=== PATIENT | male | born 1945 | race African-American/Black ===

== ENCOUNTER 2020-06-05 09:37 | Emergency (ER) | payer MEDICARE ==
[~2020-06-05] VITALS: Ht 180.3 cm; Wt 81.8 kg
[2020-06-05 10:27] VITALS: BP 189/113
--- NOTE | 2020-06-05 10:40 | NUR ---
Approximate output of 800 mLs for catheter.
[2020-06-05 11:32] LABS: BILIRUBIN,URINE NEGATIVE (NEG); CLARITY,URINE CLEAR; COLOR,URINE YELLOW; NITRITE,URINE NEGATIVE (NEG); PROTEIN,URINE NEGATIVE (NEG-TRACE)
[2020-06-05 11:36] LABS: BACTERIA,URINE 0 /HPF (0-FEW); RBC,URINE >40 /HPF (0-2); WBC,URINE 0 /HPF (0-4)
--- NOTE | 2020-06-05 11:51 | ED.ADGEN ---
Past Medical History Past Medical History: Hypertension, Hypothyroid Additional Past Medical Histor: RIGHT EYE BLINDNESS,ENLARGED PROSTATE Past Surgical History: No Surgical History Smoking Status: Never Smoker Alcohol Use: None General Adult EDM: Chief Complaint: URINARY RETENTION HPI: HPI: Patient is 75-year-old male who presents to the emergency room stating that he has been unable to urinate since yesterday afternoon. He states he has been having issues for the last 3 or 4 days. He denies any dysuria or smell to his urine. He denies decreased intake. He does have a history of large prostate. He denies any other complaints. He does have some lower abdominal pain. Review of Systems: Review of Systems: General: Denies fever, chills, sweats, fatigue Eyes: Denies drainage, blurred vision, eye redness HENT: Denies rhinorrhea, sore throat, earache Respiratory: Denies cough, shortness of breath, wheezing Cardiac: Denies edema, palpitations, chest pain GI: Denies abdominal pain, Nausea, vomiting : urinary retention, pelvic pain MSK: Denies back pain, neck pain Skin: Denies rash, jaundice Neuro: Denies headache, dizziness Psychiatric: Denies SI/HI Allergies: Allergies: Allergies Coded Allergies Type Severity Reaction Last Updated Verified No Known Drug Allergies 06/05/20 No Physical Exam: PE: General: Awake, alert, NAD. Well Nourished, well hydrated. Cooperative HEENT: Atraumatic, EOMI, PERRL, airway patent, moist oral mucosa Neck: Supple, trachea midline Respiratory: CTA bilaterally, normal effort, no wheezing/crackles CV: RRR, no murmur, cap refill <2 GI: Soft, nondistended, nontender, no masses MSK: No obvious deformities Skin: Warm, dry, intact Neuro: A&O x3, speech NL, sensory and motor grossly intact, no focal deficits Psych: Normal affect, normal mood, not suicidal or homicidal Current Patient Data: Labs: Laboratory Tests Test 06/05/20 10:40 Urine Collection Type U cath Urine Color Yellow Urine Clarity Clear Urine pH 7.0 (<5.0-8.0) Urine Specific [place] <=1.005 (1.000-1.030) Urine Protein Negative mg/dL (NEG-TRACE) Urine Glucose (UA) Negative mg/dL (NEG) Urine Ketones (Stick) Negative mg/dL (NEG) Urine Blood Large (NEG) Urine Nitrite Negative (NEG) Urine Bilirubin Negative (NEG) Urine Urobilinogen Dipstick 1.0 mg/dL (0.2 mg/dL) Urine Leukocyte Esterase Negative (NEG) Urine RBC >40 /HPF (0-2) Urine WBC 0 /HPF (0-4) Urine Squamous Epithelial Cells Occ /LPF Urine Bacteria 0 /HPF (0-FEW) Vital Signs: Vital Signs Date Time Temp Pulse Resp B/P (MAP) Pulse Ox O2 Delivery O2 Flow Rate FiO2 06/05/20 10:27 97.6 99 20 189/113 (138) 94 Room Air 97.6 EKG: EKG: [] Heart Score: Risk Factors: Risk Factors: DM, Current or recent (<one month) smoker, HTN, HLP, family history of CAD, obesity. Risk Scores: Score 0 - 3: 2.5% MACE over next 6 weeks - Discharge Home Score 4 - 6: 20.3% MACE over next 6 weeks - Admit for Clinical Observation Score 7 - 10: 72.7% MACE over next 6 weeks - Early Invasive Strategies Radiology/Procedures: Radiology/Procedures: [] Course & Med Decision Making: Course & Med Decision Making Pertinent Labs and Imaging studies reviewed. (See chart for details) Patient is 75-year-old male who presents to the emergency room with urinary retention. Bladder scan shows greater than 700. Combs was placed with out difficulty. He did have some mild bleeding with placement. UA is negative for infection. He received training on how to use a leg bag. [facility] I have discussed with him that he needs to call his primary care doctor today to get a referral to urology at the [facility]. Patient's test results and vitals while in the ED were fully reviewed and discussed with the patient. Patient is stable and at this time does not need admission to the hospital. We have discussed strict return precautions and the importance of following up with their Primary Care Physician. Patient stated understanding and was given an opportunity to ask any questions. Patient is in agreement with plan. Dragon Disclaimer: Dragon Disclaimer: This electronic medical record was generated, in whole or in part, using a voice recognition dictation system. Departure Departure Impression: Primary Impression: Urinary retention Disposition: 01 DC HOME SELF CARE/HOMELESS Condition: STABLE Referrals: RACHEL STEVEN (PCP) Patient Instructions: Indwelling Urinary Catheter Care-Brief, Urinary Retention, Acute, Male Additional Instructions: Please call your [facility] today to get a referral to the Urologist. KATYA GRAY MD Jun 05, 2020 11:51
== END 2020-06-05 12:06 | disposition home or self-care (01) ==
LOC: ER 09:37
DX: R33.9 Retention of urine, unspecified (principal); R10.2 Pelvic and perineal pain; I10 Essential (primary) hypertension; E03.9 Hypothyroidism, unspecified; Z98.890 Other specified postprocedural states
CPT/HCPCS: 51702; 81001; 99284

== ENCOUNTER 2020-06-06 17:21 | Emergency (ER) | payer MEDICARE ==
[2020-06-05 10:27] VITALS: BP 189/113
[~2020-06-06] VITALS: Ht 177.8 cm; Wt 81.8 kg
--- NOTE | 2020-06-06 17:36 | PHYS DOC ---
Past Medical History Past Medical History: Hypertension, Hypothyroid Additional Past Medical Histor: RIGHT EYE BLINDNESS,ENLARGED PROSTATE Past Surgical History: No Surgical History Smoking Status: Never Smoker Alcohol Use: None General Adult EDM: Chief Complaint: URINE CATHETER PROBLEM HPI: HPI: History obtained from patient. Patient is a 75-year-old male with a history of enlarged prostate who presents with Combs catheter issue. Patient states he was seen here yesterday for urinary retention. Combs catheter was placed that difficulty did have immediate urinary output. He states he was discharged home for close follow-up. He states approximate hour ago while sitting down at the k itchen table he felt a sudden marino of urine down his leg. He states that the Combs catheter bag somehow burst. Denies any trauma or injury to the area. Denies any dysuria. Denies any syncope. States he does [facility] Combs [facility]. Denies any other issues other than getting the bag replaced. No other complaints. Review of Systems: Review of Systems: Constitutional: Denies fever or chills. [] Eyes: Denies change in visual acuity. [] HENT: Denies nasal congestion or sore throat. [] Respiratory: Denies cough or shortness of breath. [] Cardiovascular: Denies chest pain or edema. [] GI: Denies abdominal pain, nausea, vomiting, bloody stools or diarrhea. [] : Denies dysuria. [] Musculoskeletal: Denies back pain or joint pain. [] Integument: Denies rash. [] Neurologic: Denies headache, focal weakness or sensory changes. [] Endocrine: Denies polyuria or polydipsia. [] Lymphatic: Denies swollen glands. [] Psychiatric: Denies depression or anxiety. [] Heart Score: Risk Factors: Risk Factors: DM, Current or recent (<one month) smoker, HTN, HLP, family history of CAD, obesity. Risk Scores: Score 0 - 3: 2.5% MACE over next 6 weeks - Discharge Home Score 4 - 6: 20.3% MACE over next 6 weeks - Admit for Clinical Observation Score 7 - 10: 72.7% MACE over next 6 weeks - Early Invasive Strategies Allergies: Allergies: Allergies Coded Allergies Type Severity Reaction Last Updated Verified No Known Drug Allergies 06/05/20 No Physical Exam: PE: Constitutional: Well developed, well nourished, no acute distress, non-toxic appearance. [] HENT: Normocephalic, atraumatic, bilateral external ears normal, oropharynx moist, no oral exudates, nose normal. [] Eyes: PERRLA, EOMI, conjunctiva normal, no discharge. [] Neck: Normal range of motion, no tenderness, supple, no stridor. [] Cardiovascular:Heart rate regular rhythm, no murmur [] Lungs & Thorax: Bilateral breath sounds clear to auscultation [] Abdomen: soft, no tenderness, no masses, no pulsatile masses. [] : Circumcised. No testicular pain or tenderness. No blood at the external urethral meatus. Combs catheter appears in place. Skin: Warm, dry, no erythema, no rash. [] Back: No tenderness, no CVA tenderness. [] Extremities: No tenderness, no cyanosis, no clubbing, ROM intact, no edema. [] Neurologic: Alert and oriented X 3, normal motor function, normal sensory function, no focal deficits noted. [] Psychologic: Affect normal, judgement normal, mood normal. [] EKG: EKG: [] Radiology/Procedures: Radiology/Procedures: [] Course & Med Decision Making: Course & Med Decision Making Pertinent Labs and Imaging studies reviewed. (See chart for details) [] Patient is a very pleasant 75-year-old male who presents with chief complaint of Combs catheter issue. Vital signs unremarkable. Exam noted above. Combs catheter was flushed did have spontaneous return of fluid. Combs catheter bag was reapplied to the catheter. Given the patient is asymptomatic no further testing or imaging will be performed. He was instructed [facility] his Combs catheter. Return precautions discussed and understood. Stable for discharge home. Dragon Disclaimer: [employer] Disclaimer: This electronic medical record was generated, in whole or in part, using a voice recognition dictation system. Departure Departure Impression: Primary Impression: Combs catheter problem Qualified Codes: T83.9XXA - Unspecified complication of genitourinary prosthetic device, implant and graft, initial encounter Disposition: 01 DC HOME SELF CARE/HOMELESS Condition: STABLE Referrals: RACHEL STEVEN (PCP) Patient Instructions: Combs Catheter Care, Adult Additional Instructions: [facility] Combs [facility] MYKE BERNARD DO Jun 06, 2020 17:36
== END 2020-06-06 17:53 | disposition home or self-care (01) ==
LOC: ER 17:21
DX: T83.028A Displacement of other urinary catheter, initial encounter (principal); I10 Essential (primary) hypertension; E03.9 Hypothyroidism, unspecified; N40.1 Benign prostatic hyperplasia with lower urinary tract symptoms; R33.8 Other retention of urine; Y82.8 Other medical devices associated with adverse incidents; Y92.89 Other specified places as the place of occurrence of the external cause
CPT/HCPCS: 99281

== ENCOUNTER 2021-02-17 07:20 | Emergency (ER) | payer MEDICARE ==
[~2021-02-17] VITALS: Ht 180.3 cm; Wt 81.8 kg
--- NOTE | 2021-02-17 08:27 | ED.ADGEN ---
Past Medical History Past Medical History: Hypertension, Hypothyroid Additional Past Medical Histor: RIGHT EYE BLINDNESS,ENLARGED PROSTATE Past Surgical History: No Surgical History Smoking Status: Never Smoker Alcohol Use: None General Adult EDM: Chief Complaint: URINARY RETENTION HPI: HPI: Patient is a 75 year old male presenting with urinary tension and low abdominal pain. Patient states he had urinated yesterday before going to bed but this morning is unable to urinate is complaining of suprapubic pressure. Patient has had a history of-to have a Combs placed in the past urinary retention has a history of BPH. He is taking a medication for his enlarged prostate but is not member the name. Denies any new medications. No other complaints. Review of Systems: Review of Systems: All other systems within normal limits except for as noted in the HPI Allergies: Allergies: Allergies Coded Allergies Type Severity Reaction Last Updated Verified No Known Drug Allergies 06/05/20 No Physical Exam: PE: Constitutional: Well developed, well nourished, no acute distress, non-toxic appearance. [] HENT: Normocephalic, atraumatic, bilateral external ears normal, nose normal. [] Eyes: PERRLA, conjunctiva normal, no discharge. [] Neck: No rigidity, supple, no stridor. [] Cardiovascular: Regular rate and rhythm, brisk cap refill [] Lungs & Thorax: Non labored symmetric respirations, no tachypnea or respiratory distress [] Abdomen: Soft, nondistended, low abdominal tenderness, palpable bladder. Skin: Warm, dry, no erythema, no rash. [] Back: Unremarkable Extremities: No deformities, range of motion grossly intact, no lower extremity edema [] Neurologic: Alert and oriented X 3, no focal deficits noted. [] Psychologic: Affect normal, judgement normal, mood normal. [] Current Patient Data: Labs: Laboratory Tests Test 02/17/21 08:58 Urine Collection Type Unknown Urine Color Yellow Urine Clarity Clear Urine pH 6.5 (<5.0-8.0) Urine Specific [place] <=1.005 (1.000-1.030) Urine Protein Negative mg/dL (NEG-TRACE) Urine Glucose (UA) Negative mg/dL (NEG) Urine Ketones (Stick) Negative mg/dL (NEG) Urine Blood Trace (NEG) Urine Nitrite Negative (NEG) Urine Bilirubin Negative (NEG) Urine Urobilinogen Dipstick 1.0 mg/dL (0.2 mg/dL) Urine Leukocyte Esterase Negative (NEG) Urine RBC 3-5 /HPF (0-2) Urine WBC Occ /HPF (0-4) Urine Squamous Epithelial Cells Occ /LPF Urine Bacteria 0 /HPF (0-FEW) Vital Signs: Vital Signs Date Time Temp Pulse Resp B/P (MAP) Pulse Ox O2 Delivery O2 Flow Rate FiO2 02/17/21 10:27 63 16 142/78 (99) 100 Room Air 02/17/21 07:40 98.6 98.6 EKG: EKG: [] Heart Score: C/O Chest Pain: No Risk Factors: Risk Factors: DM, Current or recent (<one month) smoker, HTN, HLP, family history of CAD, obesity. Risk Scores: Score 0 - 3: 2.5% MACE over next 6 weeks - Discharge Home Score 4 - 6: 20.3% MACE over next 6 weeks - Admit for Clinical Observation Score 7 - 10: 72.7% MACE over next 6 weeks - Early Invasive Strategies Radiology/Procedures: Radiology/Procedures: Bladder scan showing greater than 1 L. Combs placed with relief of abdominal pain and over 1 L urine output. [] Course & Med Decision Making: Course & Med Decision Making Pertinent Labs and Imaging studies reviewed. (See chart for details) [] Dragon Disclaimer: Dragon Disclaimer: This electronic medical record was generated, in whole or in part, using a voice recognition dictation system. Departure Departure Impression: Primary Impression: Urinary retention Disposition: HOME / SELF CARE / HOMELESS Condition: STABLE Referrals: SILVIANO STEVEN MD (PCP) Patient Instructions: Combs Catheter Care, Adult, Urinary Retention, Acute, Male Additional Instructions: Follow-up with your primary care provider or [facility] for voiding trial in 3 to 4 days for [place]ing [place] [address] [place] [address] RENE COON MD Feb 17, 2021 08:27
[2021-02-17 09:20] LABS: BILIRUBIN,URINE NEGATIVE (NEG); CLARITY,URINE CLEAR; COLOR,URINE YELLOW; NITRITE,URINE NEGATIVE (NEG); PH,URINE 6.5 (<5.0-8.0); PROTEIN,URINE NEGATIVE (NEG-TRACE)
[2021-02-17 09:37] LABS: BACTERIA,URINE 0 /HPF (0-FEW); WBC,URINE OCC /HPF (0-4)
[2021-02-17 10:27] VITALS: BP 142/78
== END 2021-02-17 11:12 | disposition home or self-care (01) ==
LOC: ER 07:20
DX: N40.1 Benign prostatic hyperplasia with lower urinary tract symptoms (principal); R33.8 Other retention of urine; E03.9 Hypothyroidism, unspecified; I10 Essential (primary) hypertension
CPT/HCPCS: 51702; 81001; 99284; A4314

== ENCOUNTER 2021-07-28 11:25 | Emergency (ER) | payer MEDICARE ==
[~2021-07-28] VITALS: Ht 180.3 cm; Wt 77.3 kg
--- NOTE | 2021-07-28 12:34 | PHYS DOC ---
Past Medical History Past Medical History: Hypertension, Hypothyroid Additional Past Medical Histor: RIGHT EYE BLINDNESS,ENLARGED PROSTATE Past Surgical History: No Surgical History Smoking Status: Never Smoker Alcohol Use: None General Adult EDM: Chief Complaint: URINE CATHETER PROBLEM HPI: HPI: 76-year-old male drove self to the ED with chief complaint of urinary catheter problem. Patient states that he noticed his catheter has been kinking, and he observed dark urine that uncharacteristic of his typical urine output. Patient states the last time he recalls his catheter was replaced was approximately 2 months ago. Patient denies any other medical concerns at this time. Denies headache, fever, chills, nausea, vomiting. Patient is resting comfortably in ED bed, in no acute distress. Review of Systems: Review of Systems: Constitutional: Denies fever or chills Eyes: Denies redness or eye pain HENT: Denies nasal congestion or sore throat Respiratory: Denies cough or shortness of breath Cardiovascular: Denies chest pain or palpitations GI: Denies abdominal pain, nausea, or vomiting : Denies dysuria. Reports hematuria Musculoskeletal: Denies back pain or joint pain Integument: Denies rash or skin lesions Neurologic: Denies headache, focal weakness or sensory changes Complete systems were reviewed and found to be within normal limits, except as documented in this note. Heart Score: C/O Chest Pain: No Allergies: Allergies: Allergies Coded Allergies Type Severity Reaction Last Updated Verified No Known Drug Allergies 06/05/20 No Physical Exam: PE: Constitutional: Well developed, well nourished, no acute distress, non-toxic appearance HENT: Normocephalic, atraumatic Eyes: PERRL, EOMI, conjunctiva normal, no discharge Neck: Normal range of motion, no tenderness, supple Lungs & Thorax: No respiratory distress, equal chest rise and fall Abdomen: Soft, no tenderness Skin: Warm, dry, no erythema, no rash Back: No tenderness, no CVA tenderness Extremities: No tenderness, ROM intact, no edema Neurologic: Alert and oriented X 3, normal motor function, normal sensory function, no focal deficits noted Psychologic: Affect normal, judgment normal Current Patient Data: Vital Signs: Vital Signs Date Time Temp Pulse Resp B/P (MAP) Pulse Ox O2 Delivery O2 Flow Rate FiO2 07/28/21 11:58 97.8 74 18 154/86 (108) 96 Room Air 97.8 EKG: EKG: [] Radiology/Procedures: Radiology/Procedures: [] Course & Med Decision Making: Course & Med Decision Making 76-year-old male drove self to the ED with chief complaint of urinary catheter problem. Combs catheter replaced in ED. Dragon Disclaimer: Dragon Disclaimer: This electronic medical record was generated, in whole or in part, using a voice recognition dictation system. Departure Departure Impression: Primary Impression: Complicated UTI (urinary tract infection) Disposition: HOME / SELF CARE / HOMELESS Condition: STABLE Referrals: SILVIANO STEVEN MD (PCP) Patient Instructions: Catheter-Associated Urinary Tract Infection FAQs - [place], Combs Catheter Care, Adult Scripts Cephalexin (CEPHALEXIN) 500 Mg Tablet 1 TAB PO TID for UTI for 10 Days, #30 TAB Prov: ISAK DANIEL DO 07/28/21 ISAK DANIEL DO Jul 28, 2021 12:34
[2021-07-28 13:00] VITALS: BP 136/78
[2021-07-28 13:47] LABS: CLARITY,URINE TURBID
[2021-07-28 13:50] LABS: COLOR,URINE BROWN
[2021-07-28 13:59] LABS: BACTERIA,URINE MODERATE /HPF (0-FEW); RBC,URINE TNTC /HPF (0-2)
[2021-07-28] MEDS ORDERED: CEPHALEXIN 250 MG CAPSULE. PO ONE (14:15)
[2021-07-28] MEDS ORDERED: CEPH500T PO (14:54)
== END 2021-07-28 15:00 | disposition home or self-care (01) ==
LOC: ER 11:25
DX: T83.098A Other mechanical complication of other urinary catheter, initial encounter (principal); N39.0 Urinary tract infection, site not specified; I10 Essential (primary) hypertension; E03.9 Hypothyroidism, unspecified
CPT/HCPCS: 51702; 81001; 87086; 99283

== ENCOUNTER 2021-08-19 13:54 | Emergency (ER) | payer MEDICARE ==
[~2021-08-19 13:54] MED LIST: CEPH500T PO
[2021-08-20] MEDS ORDERED: CIPR500T94 PO (00:34)
== END 2021-08-19 15:58 | disposition left against medical advice (07) ==
LOC: ER 13:54
DX: T83.038A Leakage of other urinary catheter, initial encounter (principal); Y92.89 Other specified places as the place of occurrence of the external cause; Z53.21 Procedure and treatment not carried out due to patient leaving prior to being seen by health care provider

== ENCOUNTER 2021-08-19 22:03 | Emergency (ER) | payer MEDICARE ==
[~2021-08-19] VITALS: Ht 180.3 cm; Wt 75.9 kg
--- NOTE | 2021-08-19 23:29 | PHYS DOC ---
Past Medical History Past Medical History: Hypertension, Hypothyroid, UTI Additional Past Medical Histor: PROSTATE ENLARGEMENT (MACHO SANDERS APRN) Past Surgical History: Other Additional Past Surgical Histo: LEFT KNEE (MACHO SANDERS APRN) Smoking Status: Current Every Day Smoker Alcohol Use: None (MACHO SANDERS APRN) General Adult EDM: Chief Complaint: URINE CATHETER PROBLEM HPI: HPI: Patient is a 76-year-old male who presents today with leakage from his urinary catheter. Patient is a fairly poor historian so past medical records and past ER records were reviewed for most of the past medical history. Patient states over the last couple days he has noted drainage from his catheter coming from the connection between the bag and the catheter itself. He was unable to tell the staff when the catheter was replaced but according to past medical records catheter was changed on July 28, 2021 by the ER here. Patient states he was seen within the last month with the urologist at the [facility] in [place]. He states that he has something wrong with his prostate and they are needing to do surgery on that but he is unsure of when that will happen. Patient denies chest pain, shortness of air, or fever or abdominal pain at this time. It was noted that the connection between the catheter and the bag was loosened and urine was coming from the catheter and not going into the bag, bag is pulling quite a bit on the catheter itself. (MACHO SANDERS APRN) Review of Systems: Review of Systems: Constitutional: Denies fever or chills. [] Eyes: Denies change in visual acuity. [] HENT: Denies nasal congestion or sore throat. [] Respiratory: Denies cough or shortness of breath. [] Cardiovascular: Denies chest pain or edema. [] GI: Denies abdominal pain, nausea, vomiting, bloody stools or diarrhea. [] : Denies dysuria, urine draining from catheter and not into the bag Musculoskeletal: Denies back pain or joint pain. [] Integument: Denies rash. [] Neurologic: Denies headache, focal weakness or sensory changes. [] Endocrine: Denies polyuria or polydipsia. [] Lymphatic: Denies swollen glands. [] Psychiatric: Denies depression or anxiety. [] (MACHO SANDERS APRN) Heart Score: C/O Chest Pain: N/A Risk Factors: Risk Factors: DM, Current or recent (<one month) smoker, HTN, HLP, family history of CAD, obesity. Risk Scores: Score 0 - 3: 2.5% MACE over next 6 weeks - Discharge Home Score 4 - 6: 20.3% MACE over next 6 weeks - Admit for Clinical Observation Score 7 - 10: 72.7% MACE over next 6 weeks - Early Invasive Strategies (MACHO SANDERS APRN) Allergies: Allergies: Allergies Coded Allergies Type Severity Reaction Last Updated Verified No Known Drug Allergies 06/05/20 No (MACHO SANDERS APRN) Physical Exam: PE: Constitutional: Well developed, well nourished, no acute distress, non-toxic appearance. [] HENT: Normocephalic, atraumatic, bilateral external ears normal, oropharynx moist, no oral exudates, nose normal. [] Eyes: PERRLA, EOMI, conjunctiva normal, no discharge. [] Neck: Normal range of motion, no tenderness, supple, no stridor. [] Cardiovascular:Heart rate regular rhythm, no murmur [] Lungs & Thorax: Bilateral breath sounds clear to auscultation [] Abdomen: Bowel sounds normal, soft, no tenderness, no masses, no pulsatile masses. : #18 [place] Allen catheter is in place with a leg bag attached urine is dark in color orange in nature, does have an odor to it.] Skin: Warm, dry, no erythema, no rash. [] Back: No tenderness, no CVA tenderness. [] Extremities: No tenderness, no cyanosis, no clubbing, ROM intact, no edema. [] Neurologic: Alert and oriented X 3, normal motor function, normal sensory function, no focal deficits noted. [] Psychologic: Affect normal, judgement normal, mood normal. [] (MACHO SANDERS APRN) PE: Constitutional: Well developed, well nourished, no acute distress, non-toxic appearance HENT: Normocephalic, atraumatic Eyes: Conjunctiva normal, no discharge Neck: Normal range of motion, supple Lungs & Thorax: Equal chest rise and fall, no respiratory distress\ : Normal male genitalia, no testicular pain or swelling Skin: Warm, dry, no erythema, no rash Neurologic: Alert and oriented X 3, no focal deficits noted Psychologic: Affect normal, judgement normal (ISAK DANIEL DO) Current Patient Data: Labs: Laboratory Tests Test 08/19/21 23:50 Urine Collection Type U cath Urine Color Yellow Urine Clarity Clear Urine pH 6.5 Urine Specific [place] 1.015 Urine Protein 30 mg/dL Urine Glucose (UA) Negative mg/dL Urine Ketones (Stick) Negative mg/dL Urine Blood Moderate Urine Nitrite Positive Urine Bilirubin Negative Urine Urobilinogen Dipstick 1.0 mg/dL Urine Leukocyte Esterase Moderate Urine RBC Occ /HPF Urine WBC 20-40 /HPF Urine Squamous Epithelial Cells Occ /LPF Urine Bacteria Many /HPF Urine Hyaline Casts Occasional /HPF Urine Mucus Mod /LPF Vital Signs: Vital Signs Date Time Temp Pulse Resp B/P (MAP) Pulse Ox O2 Delivery O2 Flow Rate FiO2 08/19/21 23:00 98.7 61 16 187/93 (124) 97 Room Air 98.7 (MACHO SANDERS APRN) EKG: EKG: [] (MACHO SANDERS APRN) Radiology/Procedures: Radiology/Procedures: [] (MACHO SANDERS APRN) Course & Med Decision Making: Course & Med Decision Making Pertinent Labs and Imaging studies reviewed. (See chart for details) We will have RN replace Allen catheter and grab a UA and will send it to lab for analysis 0026 reviewed patient's past urine culture patient has multiple resistance to medications due to patient's current urine will place patient on Cipro 500 mg 1 tablet twice daily for 7 days. We will have him follow-up this week with his urology clinic and his primary care physician for further management of his urinary tract infection. Have informed patient and instructed him that anytime there is a break in the system between the catheter and the bag that introduces bacteria into the system and he is to avoid that at all costs. Patient verbalized understanding of this and is agreeable to the plan of care. (MACHO SANDERS APRN) Dragon Disclaimer: Dragon Disclaimer: This electronic medical record was generated, in whole or in part, using a voice recognition dictation system. (MACHO SANDERS APRN) Additional Procedures Progress Allen catheter replacement: (by physician) RN called with difficulty in replacement of indwelling allen cath. Old catheter had previously been removed. Verbal consent obtained. Time out performed. Hand hygiene utilized. Sterile gloves donned. Allen catheter successfully placed by myself after lubrication with ky jelly. Positive return of urine noted in down drain prior to balloon infiltration. Patient tolerated procedure well and without difficulty. (ISAK DANIEL DO) Departure Departure Impression: Primary Impression: UTI (urinary tract infection) due to urinary indwelling Allen catheter Qualified Codes: T83.511A - Infection and inflammatory reaction due to indwelling urethral catheter, initial encounter; N39.0 - Urinary tract infection, site not specified Disposition: HOME / SELF CARE / HOMELESS Condition: STABLE Referrals: SILVIANO STEVEN MD (PCP) Patient Instructions: Allen Catheter Care, Adult, Indwelling Urinary Catheter Care-Brief, Urinary Tract Infection Additional Instructions: Cipro 500 mg take 1 tablet twice daily for 7 full days. Follow-up with your primary care physician or your urologist at the [facility] for further management of urinary tract infection and your Allen care Avoid any break in the catheter to bag connection. Return to the emergency department for abdominal pain, fever, or any problems with your Allen catheter Scripts Ciprofloxacin Hcl (CIPRO) 500 Mg Tablet 1 TAB PO BID for 7 Days, #14 TAB 0 Refills Prov: MACHO SANDERS APRN 08/20/21 Attending Signature Attending Signature I have personally interviewed and examined the patient. All charts, labs, and imaging studies were reviewed. I agree with the PA/BONE CHAR KILN TENDER's findings, exam, and plan. (ISAK DANIEL DO) MACHO SANDERS CHILDREN'S COUNSELOR Aug 19, 2021 23:29 ISAK DANIEL DO Aug 24, 2021 10:36
[2021-08-20 00:04] LABS: BILIRUBIN,URINE NEGATIVE (NEG); CLARITY,URINE CLEAR; COLOR,URINE YELLOW; NITRITE,URINE POSITIVE (NEG); PH,URINE 6.5 (<5.0-8.0); PROTEIN,URINE 30 mg/dL (NEG-TRACE)
[2021-08-20 00:09] LABS: BACTERIA,URINE MANY /HPF (0-FEW); RBC,URINE OCC /HPF (0-2); WBC,URINE 20-40 /HPF (0-4)
[2021-08-20 00:10] LABS: HYALINE CASTS, URINE OCCASIONAL /HPF
[2021-08-20 00:30] VITALS: BP 162/80
[2021-08-20] MEDS ORDERED: CIPR500T94 PO (00:34)
[2021-08-20] MEDS ORDERED: CIPROFLOXACIN HCL 250 MG TABLET. PO ONE (01:00)
== END 2021-08-20 01:09 | disposition home or self-care (01) ==
LOC: ER 22:03
DX: T83.511A Infection and inflammatory reaction due to indwelling urethral catheter, initial encounter (principal); N39.0 Urinary tract infection, site not specified; I10 Essential (primary) hypertension; E03.9 Hypothyroidism, unspecified; F17.200 Nicotine dependence, unspecified, uncomplicated; Y92.89 Other specified places as the place of occurrence of the external cause
CPT/HCPCS: 81001; 87077; 87086; 87186; 99283

== ENCOUNTER 2021-08-20 08:16 | Emergency (ER) | payer MEDICARE ==
[~2021-08-20] VITALS: Ht 172.7 cm; Wt 81.0 kg
[~2021-08-20 08:16] MED LIST changes: +CIPR500T94 PO
--- NOTE | 2021-08-20 09:02 | PHYS DOC ---
Past Medical History Past Medical History: Hypertension, Hypothyroid, UTI Additional Past Medical Histor: PROSTATE ENLARGEMENT Past Surgical History: Other Additional Past Surgical Histo: LEFT KNEE Smoking Status: Current Every Day Smoker Alcohol Use: None General Adult EDM: Chief Complaint: GROIN PAIN HPI: HPI: Patient is a 76 year old male who was brought here by EMS from home due to lower abdominal pain, bladder pressure. Patient was seen here yesterday due to bladder pain. Patient had an indwelling Combs catheter. It was replaced in the ER. Patient was diagnosed with urinary tract infection, prescribed antibiotic but he did not pick it up yet patient went home, felt more pain in the bladder area. Patient noted urine in the tubing but not in the collecting bag. Patient denies any fever, no nausea vomiting. Review of Systems: Review of Systems: Constitutional: Denies fever or chills. [] Eyes: Denies change in visual acuity. [] HENT: Denies nasal congestion or sore throat. [] Respiratory: Denies cough or shortness of breath. [] Cardiovascular: Denies chest pain or edema. [] GI: Denies abdominal pain, nausea, vomiting, bloody stools or diarrhea. [] : Denies dysuria. [] Musculoskeletal: Denies back pain or joint pain. [] Integument: Denies rash. [] Neurologic: Denies headache, focal weakness or sensory changes. [] Endocrine: Denies polyuria or polydipsia. [] Lymphatic: Denies swollen glands. [] Psychiatric: Denies depression or anxiety. [] Heart Score: C/O Chest Pain: N/A Risk Factors: Risk Factors: DM, Current or recent (<one month) smoker, HTN, HLP, family history of CAD, obesity. Risk Scores: Score 0 - 3: 2.5% MACE over next 6 weeks - Discharge Home Score 4 - 6: 20.3% MACE over next 6 weeks - Admit for Clinical Observation Score 7 - 10: 72.7% MACE over next 6 weeks - Early Invasive Strategies Allergies: Allergies: Allergies Coded Allergies Type Severity Reaction Last Updated Verified No Known Drug Allergies 06/05/20 No Physical Exam: PE: Constitutional: Well developed, well nourished, patient was in acute distress due to pain HENT: Normocephalic, atraumatic, bilateral external ears normal, oropharynx moist, no oral exudates, nose normal. [] Eyes: PERRLA, EOMI, conjunctiva normal, no discharge. [] Neck: Normal range of motion, no tenderness, supple, no stridor. [] Cardiovascular:Heart rate regular rhythm, no murmur [] Lungs & Thorax: Bilateral breath sounds clear to auscultation [] Abdomen: Bowel sounds normal, soft, Combs catheter in place, suprapubic tenderness to palpation, bladder distended. Combs catheter in place, there is urine in the tubing but not in the collecting bag. Skin: Warm, dry, no erythema, no rash. [] Back: No tenderness, no CVA tenderness. [] Extremities: No tenderness, no cyanosis, no clubbing, ROM intact, no edema. [] Neurologic: Alert and oriented X 3, normal motor function, normal sensory function, no focal deficits noted. [] Psychologic: Affect normal, judgement normal, mood normal. [] EKG: EKG: [] Radiology/Procedures: Radiology/Procedures: [] Course & Med Decision Making: Course & Med Decision Making Pertinent Labs and Imaging studies reviewed. (See chart for details) Bladder scan show more than 900 cc of urine in the bladder. Combs catheter was replaced, the meatus 400 cc of urine collected. Patient fell better immediately. About 1 L of urine were collected. Dragon Disclaimer: Dragon Disclaimer: This electronic medical record was generated, in whole or in part, using a voice recognition dictation system. Departure Departure Impression: Primary Impression: Combs catheter problem Disposition: HOME / SELF CARE / HOMELESS Condition: IMPROVED Referrals: SILVIANO STEVEN MD (PCP) Please follow up with your urologist this week Patient Instructions: Combs Catheter Care, Adult Additional Instructions: Thank you for visiting our Emergency Department. We appreciate you trusting us with your care. If any additional problems come up don't hesitate to return to visit us. Please follow up with your primary care provider so they can plan additional care if needed and know about the problem that you had. If symptoms worsen come back to the Emergency Department. Any concerning symptoms that start such as chest pain, shortness of air, weakness or numbness on one side of the body, running high fevers or any other concerning symptoms return to the ER. NUSRAT MORIN DO Aug 20, 2021 09:02
[2021-08-20 09:03] VITALS: BP 154/102
== END 2021-08-20 09:52 | disposition home or self-care (01) ==
LOC: ER 08:16
DX: T83.84XA Pain due to genitourinary prosthetic devices, implants and grafts, initial encounter (principal); I10 Essential (primary) hypertension; E03.9 Hypothyroidism, unspecified; F17.200 Nicotine dependence, unspecified, uncomplicated; Y92.89 Other specified places as the place of occurrence of the external cause
CPT/HCPCS: 51702; 99284

== ENCOUNTER 2021-09-23 04:38 | Emergency (ER) | payer MEDICARE ==
[~2021-09-23] VITALS: Ht 180.3 cm; Wt 77.3 kg
[2021-09-23] MEDS ORDERED: IV NORMAL SALINE 1000ML BAG 1,000 ML IV ONE (06:30)
[2021-09-23] MEDS ORDERED: cefTRIAXone IV Push 1 GM VIAL. IVP ONE (06:30)
[2021-09-23 06:46] LABS: BILIRUBIN,URINE NEGATIVE (NEG); CLARITY,URINE CLEAR; COLOR,URINE YELLOW; NITRITE,URINE NEGATIVE (NEG); PH,URINE 6.5 (<5.0-8.0); PROTEIN,URINE NEGATIVE (NEG-TRACE)
[2021-09-23 06:47] VITALS: BP 132/77
[2021-09-23 06:47] LABS: CALCIUM 8.9 mg/dL (8.5-10.1); CREATININE 1.2 mg/dL (0.7-1.3); GFR 71.2; POTASSIUM 3.4 mmol/L (3.5-5.1)
--- NOTE | 2021-09-23 06:49 | PHYS DOC ---
Past Medical History Past Medical History: Hypertension, Hypothyroid, UTI Additional Past Medical Histor: PROSTATE ENLARGEMENT Past Surgical History: Other Additional Past Surgical Histo: LEFT KNEE Smoking Status: Current Every Day Smoker Alcohol Use: None General Adult EDM: Chief Complaint: URINE CATHETER PROBLEM HPI: HPI: Patient is a 76 year old male with history of BPH, urinary retention with urinary catheter in place who presents with catheter dysfunction. States that he drained his bag before bed last night, and woke up with suprap ubic pain. The bag had had no drainage this morning. He tried repositioning it and that did not work. Denies fever or chills. States that this Allen was placed approximately 2 weeks ago. States that he has a planned urologic intervention for BPH in the near future at [facility]. Review of Systems: Review of Systems: Constitutional: Denies fever or chills. [] Eyes: Denies change in visual acuity. [] HENT: Denies nasal congestion or sore throat. [] Respiratory: Denies cough or shortness of breath. [] Cardiovascular: Denies chest pain or edema. [] GI: Denies abdominal pain, nausea, vomiting, bloody stools or diarrhea. [] : Reports Allen catheter dysfunction and suprapubic pain. Musculoskeletal: Denies back pain or joint pain. [] Integument: Denies rash. [] Neurologic: Denies headache, focal weakness or sensory changes. [] Psychiatric: Denies depression or anxiety. [] Heart Score: C/O Chest Pain: No Current Medications: Current Medications Medications (Trade) Dose Ordered Sig/Izabella Start Time Stop Time Status Last Admin Dose Admin Ceftriaxone Sodium (Rocephin) 1 gm 1X ONCE 09/23/21 06:30 09/23/21 06:31 DC Sodium Chloride 1,000 ml @ 1,000 mls/hr 1X ONCE 09/23/21 06:30 09/23/21 07:29 Allergies: Allergies: Allergies Coded Allergies Type Severity Reaction Last Updated Verified No Known Drug Allergies 08/20/21 No Physical Exam: PE: Constitutional: Appears uncomfortable HENT: Normocephalic, atraumatic Neck: Normal range of motion, no tenderness, supple, no stridor. [] Cardiovascular: Tachycardic, regular Lungs & Thorax: Bilateral breath sounds clear to auscultation [] Abdomen: Suprapubic tenderness to palpation in the midline. No other areas of abdominal tenderness. : allen catheter in place. not draining. Skin: Warm, dry, no erythema, no rash. [] Back: No tenderness, no CVA tenderness. [] Extremities: No tenderness, no cyanosis, no clubbing, ROM intact, no edema. [] Neurologic: Alert and oriented X 3, normal motor function, normal sensory function, no focal deficits noted. [] Psychologic: Affect normal, judgement normal, mood normal. [] Current Patient Data: Labs: Laboratory Tests Test 09/23/21 06:00 09/23/21 06:30 White Blood Count 8.2 x10^3/uL Red Blood Count 5.17 x10^6/uL Hemoglobin 15.8 g/dL Hematocrit 47.1 % Mean Corpuscular Volume 91 fL Mean Corpuscular Hemoglobin 31 pg Mean Corpuscular Hemoglobin Concent 34 g/dL Red Cell Distribution Width 16.3 % Platelet Count 113 x10^3/uL Neutrophils (%) (Auto) 79 % Lymphocytes (%) (Auto) 10 % Monocytes (%) (Auto) 10 % Eosinophils (%) (Auto) 1 % Basophils (%) (Auto) 1 % Neutrophils # (Auto) 6.4 x10^3/uL Lymphocytes # (Auto) 0.8 x10^3/uL Monocytes # (Auto) 0.8 x10^3/uL Eosinophils # (Auto) 0.1 x10^3/uL Basophils # (Auto) 0.0 x10^3/uL Sodium Level 144 mmol/L Potassium Level 3.4 mmol/L Chloride Level 107 mmol/L Carbon Dioxide Level 30 mmol/L Anion Gap 7 Blood Urea Nitrogen 16 mg/dL Creatinine 1.2 mg/dL Estimated GFR (Cockcroft-Gault) 71.2 BUN/Creatinine Ratio 13 Glucose Level 123 mg/dL Lactic Acid Level 1.0 mmol/L Calcium Level 8.9 mg/dL Total Bilirubin 0.9 mg/dL Aspartate Amino Transf (AST/SGOT) 11 U/L Alanine Aminotransferase (ALT/SGPT) 10 U/L Alkaline Phosphatase 73 U/L Total Protein 7.7 g/dL Albumin 3.4 g/dL Albumin/Globulin Ratio 0.8 Urine Collection Type Unknown Urine Color Yellow Urine Clarity Clear Urine pH 6.5 Urine Specific [place] 1.010 Urine Protein Negative mg/dL Urine Glucose (UA) Negative mg/dL Urine Ketones (Stick) Negative mg/dL Urine Blood Large Urine Nitrite Negative Urine Bilirubin Negative Urine Urobilinogen Dipstick 1.0 mg/dL Urine Leukocyte Esterase Moderate Urine RBC >40 /HPF Urine WBC 11-20 /HPF Urine Squamous Epithelial Cells Few /LPF Urine Bacteria 0 /HPF Vital Signs: Vital Signs Date Time Temp Pulse Resp B/P (MAP) Pulse Ox O2 Delivery O2 Flow Rate FiO2 09/23/21 05:20 99.1 126 18 196/120 (145) 98 Room Air 99.1 Vital Signs Date Time Temp Pulse Resp B/P (MAP) Pulse Ox O2 Delivery O2 Flow Rate FiO2 09/23/21 06:47 88 16 132/77 (95) 94 Room Air 09/23/21 05:20 99.1 99.1 EKG: EKG: [] Radiology/Procedures: Radiology/Procedures: Bedside US shows distended bladder full of urine with allen in place, evidence of enlarged prostate. [] Course & Med Decision Making: Course & Med Decision Making Pertinent Labs and Imaging studies reviewed. (See chart for details) Patient is a 76-year-old male history of BPH with urinary retention s/p Allen catheter placement who presents with Allen catheter malfunction and suprapubic discomfort. Allen is not draining, and patient has a significant amount of urine present in bladder on bedside ultrasound. Allen catheter in place. He is tachycardic to 140s initially, so lab work including blood, urine culture, lactic acid sent. However, feel that his tachycardia is likely due to pain since after Allen replacement his heart rate has improved to the 80s. So abx have been deferred. 0649 Labs reassuring. no bacteria on UA, predominance of RBCs only 11-20 WBC. Unlikely infection. Symptoms now completely resolved following allen replacement with 900 mL of immediate urine output. HR 80s, BP 118/79. Will be discharged with planned close urology follow up. 0717 Yumiko Disclaimer: Yumiko Disclaimer: This electronic medical record was generated, in whole or in part, using a voice recognition dictation system. Departure Departure Impression: Primary Impression: Allen catheter problem Disposition: 01 HOME / SELF CARE / HOMELESS Condition: STABLE Referrals: SILVIANO STEVEN MD (PCP) Additional Instructions: Please follow up with your urology providers at [facility]. If you have another blockage in your allen you can always return to the emergency department to have it looked at. If you develop high fevers/shaking chills, nausea, vomiting, pain in your flank or other new/concerning symptoms please return to be seen. DEMETRI OH MD Sep 23, 2021 06:49
[2021-09-23 06:52] LABS: ALBUMIN 3.4 g/dL (3.4-5.0); ALBUMIN/GLOBULIN RATIO 0.8 (1.0-1.7); TOTAL BILIRUBIN 0.9 mg/dL (0.2-1.0); TOTAL PROTEIN 7.7 g/dL (6.4-8.2)
[2021-09-23 07:22] LABS: BACTERIA,URINE 0 /HPF (0-FEW); RBC,URINE >40 /HPF (0-2)
[2021-09-23 07:23] LABS: BASO % 1 % (0-3); EOS # 0.1 x10^3/uL (0.0-0.7); EOS % 1 % (0-3); HEMATOCRIT 47.1 % (39.0-53.0); HEMOGLOBIN 15.8 g/dL (13.0-17.5); LYMPH # 0.8 x10^3/uL (1.0-4.8); LYMPH % 10 % (24-48); MEAN CORPUSCULAR HEMOGLOBIN 31 pg (25-35); MEAN CORPUSCULAR HGB CONC 34 g/dL (31-37); MEAN CORPUSCULAR VOLUME 91 fL (79-100); MONO # 0.8 x10^3/uL (0.0-1.1); MONO % 10 % (0-9); NEUT # 6.4 x10^3/uL (1.8-7.7); NEUT % 79 % (31-73); PLATELET COUNT 113 x10^3/uL (140-400); RED BLOOD COUNT 5.17 x10^6/uL (4.30-5.70); RED CELL DISTRIBUTION WIDTH 16.3 % (11.5-14.5); WHITE BLOOD COUNT 8.2 x10^3/uL (4.0-11.0)
--- NOTE | 2021-09-23 13:45 | EKG ---
[facility] [address] [place] [address] Test Date: 2021-09-23 Test Time: 06:56:57 Pat Name: NOLAN BALDWIN Department: Room: Gender: M Gas Flow Regulator: : 1945 Requested By: DEMETRI OH Order Number: [id number] Reading MD: Chidi Medina Measurements Intervals Era Rate: 89 P: OK: QRS: -28 QRSD: 86 T: 84 QT: 378 QTc: 461 Interpretive Statements SINUS RHYTHM VENTRICULAR PREMATURE COMPLEX(ES) LEFTWARD AXIS LOW LIMB LEAD VOLTAGE QRS(T) CONTOUR ABNORMALITY CONSISTENT WITH POSSIBLE OLD ANTEROSEPTAL INFARCT Electronically Signed On 09-24-2021 11:46:37 [employer] by Chidi Medina
== END 2021-09-23 07:55 | disposition home or self-care (01) ==
LOC: ER 04:59
DX: T83.098A Other mechanical complication of other urinary catheter, initial encounter (principal); I10 Essential (primary) hypertension; E03.9 Hypothyroidism, unspecified; N40.1 Benign prostatic hyperplasia with lower urinary tract symptoms; R33.8 Other retention of urine; F17.200 Nicotine dependence, unspecified, uncomplicated; Y92.89 Other specified places as the place of occurrence of the external cause
CPT/HCPCS: 36415; 51702; 80053; 81001; 83605; 85025; 87040; 87077; 87086; 87186; 93005; 99285-25

== ENCOUNTER 2021-09-24 23:06 | Inpatient (IN) | payer MEDICARE ==
[~2021-09-24] VITALS: Ht 177.8 cm; Wt 76.2 kg
[2021-09-25 00:41] LABS: BASO % 0 % (0-3); EOS # 0.1 x10^3/uL (0.0-0.7); EOS % 2 % (0-3); HEMATOCRIT 45.9 % (39.0-53.0); HEMOGLOBIN 15.2 g/dL (13.0-17.5); LYMPH # 0.9 x10^3/uL (1.0-4.8); LYMPH % 14 % (24-48); MEAN CORPUSCULAR HEMOGLOBIN 30 pg (25-35); MEAN CORPUSCULAR HGB CONC 33 g/dL (31-37); MEAN CORPUSCULAR VOLUME 92 fL (79-100); MONO # 0.6 x10^3/uL (0.0-1.1); MONO % 10 % (0-9); NEUT # 4.8 x10^3/uL (1.8-7.7); NEUT % 75 % (31-73); PLATELET COUNT 101 x10^3/uL (140-400); RED BLOOD COUNT 5.02 x10^6/uL (4.30-5.70); RED CELL DISTRIBUTION WIDTH 16.1 % (11.5-14.5); WHITE BLOOD COUNT 6.5 x10^3/uL (4.0-11.0)
[2021-09-25] MEDS ORDERED: MORPHINE SULFATE 4 MG/ML INJ. IVP PRN (00:45)
[2021-09-25] MEDS ORDERED: ONDANSETRON PF 4 MG/2 ML VIAL. IVP PRN (00:45)
[2021-09-25] MEDS ORDERED: ACETAMINOPHEN 325 MG TABLET. PO PRN (00:45)
[2021-09-25 00:49] LABS: CALCIUM 8.7 mg/dL (8.5-10.1); CREATININE 1.2 mg/dL (0.7-1.3); GFR 71.2; POTASSIUM 3.3 mmol/L (3.5-5.1)
[2021-09-25 00:55] LABS: ALBUMIN 3.1 g/dL (3.4-5.0); ALBUMIN/GLOBULIN RATIO 0.7 (1.0-1.7); TOTAL BILIRUBIN 0.7 mg/dL (0.2-1.0); TOTAL PROTEIN 7.3 g/dL (6.4-8.2)
[2021-09-25 01:29] LABS: BILIRUBIN,URINE NEGATIVE (NEG); CLARITY,URINE TURBID; COLOR,URINE RED; NITRITE,URINE NEGATIVE (NEG); PROTEIN,URINE 30 mg/dL (NEG-TRACE)
[2021-09-25 01:43] LABS: RBC,URINE TNTC /HPF (0-2)
[2021-09-25 01:44] LABS: BACTERIA,URINE 0 /HPF (0-FEW)
--- NOTE | 2021-09-25 04:53 | ED.ADGEN ---
Past Medical History Past Medical History: Hypertension, Hypothyroid, UTI Additional Past Medical Histor: PROSTATE ENLARGEMENT, HEPATITIS Past Surgical History: Other Additional Past Surgical Histo: LEFT KNEE Smoking Status: Never Smoker Alcohol Use: None General Adult EDM: Chief Complaint: URINE CATHETER PROBLEM HPI: HPI: Patient is a 76 year old male coming in for urinary retention low abdominal pain. Patient is a poor historian but states that he had a Combs catheter placed for retention yesterday. Since it has been having gross blood outputs but does not feel he has been able to have a urine put out. Has not had any feeling in his leg bag. Patient says that the Combs insertion yesterday was nontraumatic. On bladder scan patient has approximately 600 mL of urine in bladder Review of Systems: Review of Systems: All other systems within normal limits except for as noted in the HPI Allergies: Allergies: Allergies Coded Allergies Type Severity Reaction Last Updated Verified No Known Drug Allergies 08/20/21 No Physical Exam: PE: Constitutional: Well developed, well nourished, no acute distress, non-toxic appearance. [] HENT: Normocephalic, atraumatic, bilateral external ears normal, nose normal. [] Eyes: PERRLA, conjunctiva normal, no discharge. [] Neck: No rigidity, supple, no stridor. [] Cardiovascular: Regular rate and rhythm, brisk cap refill [] Lungs & Thorax: Non labored symmetric respirations, no tachypnea or respiratory distress [] Abdomen: Soft, nondistended. : Combs catheter placed, no blood around meatus, gross blood in tubing Combs catheter Skin: Warm, dry, no erythema, no rash. [] Back: Unremarkable Extremities: No deformities, range of motion grossly intact, no lower extremity edema [] Neurologic: Alert and oriented X 3, no focal deficits noted. [] Psychologic: Affect normal, judgement normal, mood normal. [] Current Patient Data: Vital Signs: Vital Signs Date Time Temp Pulse Resp B/P (MAP) Pulse Ox O2 Delivery O2 Flow Rate FiO2 09/24/21 23:15 98.1 98 22 143/67 (92) 98 Room Air 98.1 EKG: EKG: [] Heart Score: C/O Chest Pain: No Risk Factors: Risk Factors: DM, Current or recent (<one month) smoker, HTN, HLP, family h istory of CAD, obesity. Risk Scores: Score 0 - 3: 2.5% MACE over next 6 weeks - Discharge Home Score 4 - 6: 20.3% MACE over next 6 weeks - Admit for Clinical Observation Score 7 - 10: 72.7% MACE over next 6 weeks - Early Invasive Strategies Radiology/Procedures: Radiology/Procedures: [] Course & Med Decision Making: Course & Med Decision Making Three-way Combs catheter placed due to gross hematuria that was clogging bladder. Unable to irrigate out clots from the tubing. Will admit for bladder irrigation and urology consult. Dragon Disclaimer: DragMapluck Disclaimer: This electronic medical record was generated, in whole or in part, using a voice recognition dictation system. Departure Departure Impression: Primary Impression: Hematuria Additional Impression: Combs catheter problem Disposition: ADMITTED INPATIENT Admitting Physician: MARCELLO Condition: STABLE Referrals: SILVIANO STEVEN MD (PCP) Problem Qualifiers RENE COON MD Sep 25, 2021 04:53
--- NOTE | 2021-09-25 07:58 | PDOC1 ---
History and Physical Date of Admission Date of Admission DATE: 09/25/21 TIME: 07:57 Identification/Chief Complaint Chief Complaint Abdominal pain Source Source: Patient History of Present Illness History of Present Illness Mr Oshea is a 76 year old male [employer] w/ PMHx BPH, chronic indwelling allen cather, HTN coming to ED c/o urinary retention and low abdominal pain with no allen output. He has intermittently had Allen catheter placement chronically for years and goes to [facility] for urology care. He had had his Allen catheter placed in the ED on 09/23/2021 and had noted no urinary output for over 24 hours with increasing abdominal pain. On bladder scan in ED 600 cc urine was noted in the bladder, allen was removed and replaced in the ED noted with some blood in the Allen. Allen was connected to irrigation with blood initially pain started to improve. No chest pain or shortness of breath no recent sick contacts or travel. Patient lives alone but frequently has his grandson check on him WBC 6.5, Hb 15.2, platelets 101, NA 145, K3.3, BUN 20, CR 1.2, glucose 115, calcium 8.7, bilirubin 0.7, AST 10, ALT 10, alk phos 62, albumin 3.1, urinalysis large leuk esterase large blood. Seen bedside. Allen bag with nearly 2L clear yellow urine. Still on 3-way allen with irrigation. Past Medical History Cardiovascular: HTN Hepatobiliary: Hep A/B/C Renal/: Benign prostatic enlarg. Past Surgical History Past Surgical History: Total knee replacement (Left) Family History Family History: High Cholestrol, Hypertension Social History Smoke: No ALCOHOL: none Drugs: None Current Problem List Problem List Problems Medical Problems: (1) Allen catheter problem Status: Acute Current Medications Current Medications Current Medications Ondansetron HCl (Zofran) 4 mg PRN Q8HRS PRN IVP NAUSEA/VOMITING; Start 09/25/21 at 00:45; Stop 09/26/21 at 00:44 Morphine Sulfate (Morphine Sulfate) 4 mg PRN Q2HR PRN IVP PAIN; Start 09/25/21 at 00:45; Stop 09/26/21 at 00:44 Acetaminophen (Tylenol) 650 mg PRN Q4HRS PRN PO FEVER > 100.3'F; Start 09/25/21 at 00:45; Stop 09/26/21 at 00:44 Active Scripts Active Cipro (Ciprofloxacin Hcl) 500 Mg Tablet 1 Tab PO BID 7 Days Cephalexin 500 Mg Tablet 1 Tab PO TID 10 Days Allergies Allergies: Coded Allergies: No Known Drug Allergies (Unverified , 08/20/21) ROS General: YES: Fatigue, Malaise; No: Chills, Night Sweats, Appetite, Other PSYCHOLOGICAL ROS: No: Anxiety, Behavioral Disorder, Concentration difficultie, Decreased libido, Depression, Disorientation, Hallucinations, Hostility, Irritablity, Memory difficulties, Mood Swings, Obsessive thoughts, Physical abuse, Sexual abuse, Sleep disturbances, Suicidal ideation, Other Eyes: No Blurry vision, No Decreased vision, No Double vision, No Dry eyes, No Excessive tearing, No Eye Pain, No Itchy Eyes, No Loss of vision, No Photophobia, No Scotomata, No Uses contacts, No Uses glasses, No Other HEENT: No: Heacaches, Visual Changes, Hearing change, Nasal congestion, Nasal discharge, Oral lesions, Sinus pain, Sore Throat, Epistaxis, Sneezing, Snoring, Tinnitus, Vertigo, Vocal changes, Other ALLERGY AND IMMUNOLOGY: No: Hives, Insect Bite Sensitivity, Itchy/Watery Eyes, Nasal Congestion, Post Nasal Drip, Seasonal Allergies, Other Hematological and Lymphatic: No: Bleeding Problems, Blood Clots, Blood Transfusions, Brusing, Night Sweats, Pallor, Swollen Lymph Nodes, Other ENDOCRINE: No: Breast Changes, Galactorrhea, Hair Pattern Changes, Hot Flashes, Malaise/lethargy, Mood Swings, Palpitations, Polydipsia/polyuria, Skin Changes, Temperature Intolerance, Unexpected Weight Changes, Other Breast: No New/Changing Breast Lumps, No Nipple changes, No Nipple discharge, No Other Respiratory: No: Cough, Hemoptysis, Orthopnea, Pleuritic Pain, Shortness of breath, SOB with excertion, Sputum Changes, Stridor, Tachypnea, Wheezing, Other Cardiovascular: No Chest Pain, No Palpitations, No Orthopnea, No Paroxysmal Noc. Dyspnea, No Edema, No Lt Headedness, No Other Gastrointestinal: Yes Nausea, Yes Abdominal Pain; No Vomiting, No Diarrhea, No Constipation, No Melena, No Hematochezia, No Other Genitourinary: YES Hematuria, YES Retention, YES Urgency, YES Pain; No Dysuria, No Frequency, No Incontinence, No Discharge, No Flank Pain, No Other, No , No , No , No , No , No , No Neurological: No Behavorial Changes, No Bowel/Bladder ControlChng, No Confusion, No Dizziness, No Gait Disturbance, No Headaches, No Impaired Coord/balance, No Memory Loss, No Numbness/Tingling, No Seizures, No Speech Problems, No Tremors, No Visual Changes, No Weakness, No Other Skin: No Dry Skin, No Eczema, No Hair Changes, No Lumps, No Mole Changes, No Mottling, No Nail Changes, No Pruritus, No Rash, No Skin Lesion Changes, No Other, No Acne Physical Exam General: Alert, Oriented X3, Cooperative, mild distress HEENT: Atraumatic, PERRLA, EOMI, Mucous membr. moist/pink Lungs: Clear to auscultation, Normal air movement Heart: S1S2, RRR, no thrills, no rubs, no gallops, no murmurs Abdomen: Normal bowel sounds, Soft, No tenderness, No hepatosplenomegaly, No masses Male Genitals Exam: normal genitalia, high riding prostate, other (Allen in place) Rectal Exam: other (large prostate) Extremities: No clubbing, No cyanosis, No edema, Normal pulses, No tenderness/swelling Skin: No rashes, No breakdown, No significant lesion Neuro: Normal gait, Normal speech, Strength at 5/5 X4 ext, Normal tone, Sensation intact, Cranial nerves 3-12 NL, Reflexes 2+ Psych/Mental Status: Mental status NL, Mood NL Vitals Vitals Vital Signs Date Time Temp Pulse Resp B/P (MAP) Pulse Ox O2 Delivery O2 Flow Rate FiO2 09/25/21 07:00 98.3 74 18 139/86 (103) 98 98.3 09/24/21 23:15 Room Air Labs Labs Laboratory Tests Test 09/25/21 00:30 09/25/21 01:20 White Blood Count 6.5 x10^3/uL (4.0-11.0) Red Blood Count 5.02 x10^6/uL (4.30-5.70) Hemoglobin 15.2 g/dL (13.0-17.5) Hematocrit 45.9 % (39.0-53.0) Mean Corpuscular Volume 92 fL (79-100) Mean Corpuscular Hemoglobin 30 pg (25-35) Mean Corpuscular Hemoglobin Concent 33 g/dL (31-37) Red Cell Distribution Width 16.1 % (11.5-14.5) Platelet Count 101 x10^3/uL (140-400) Neutrophils (%) (Auto) 75 % (31-73) Lymphocytes (%) (Auto) 14 % (24-48) Monocytes (%) (Auto) 10 % (0-9) Eosinophils (%) (Auto) 2 % (0-3) Basophils (%) (Auto) 0 % (0-3) Neutrophils # (Auto) 4.8 x10^3/uL (1.8-7.7) Lymphocytes # (Auto) 0.9 x10^3/uL (1.0-4.8) Monocytes # (Auto) 0.6 x10^3/uL (0.0-1.1) Eosinophils # (Auto) 0.1 x10^3/uL (0.0-0.7) Basophils # (Auto) 0.0 x10^3/uL (0.0-0.2) Sodium Level 145 mmol/L (136-145) Potassium Level 3.3 mmol/L (3.5-5.1) Chloride Level 108 mmol/L (98-107) Carbon Dioxide Level 30 mmol/L (21-32) Anion Gap 7 (6-14) Blood Urea Nitrogen 20 mg/dL (8-26) Creatinine 1.2 mg/dL (0.7-1.3) Estimated GFR (Cockcroft-Gault) 71.2 BUN/Creatinine Ratio 17 (6-20) Glucose Level 115 mg/dL (70-99) Calcium Level 8.7 mg/dL (8.5-10.1) Total Bilirubin 0.7 mg/dL (0.2-1.0) Aspartate Amino Transf (AST/SGOT) 10 U/L (15-37) Alanine Aminotransferase (ALT/SGPT) 10 U/L (16-63) Alkaline Phosphatase 62 U/L (46-116) Total Protein 7.3 g/dL (6.4-8.2) Albumin 3.1 g/dL (3.4-5.0) Albumin/Globulin Ratio 0.7 (1.0-1.7) Urine Collection Type Unknown Urine Color Red Urine Clarity Turbid Urine pH 6.0 (<5.0-8.0) Urine Specific [place] 1.010 (1.000-1.030) Urine Protein 30 mg/dL (NEG-TRACE) Urine Glucose (UA) Negative mg/dL (NEG) Urine Ketones (Stick) Trace mg/dL (NEG) Urine Blood Large (NEG) Urine Nitrite Negative (NEG) Urine Bilirubin Negative (NEG) Urine Urobilinogen Dipstick 1.0 mg/dL (0.2 mg/dL) Urine Leukocyte Esterase Large (NEG) Urine RBC Tntc /HPF (0-2) Urine WBC 11-20 /HPF (0-4) Urine Squamous Epithelial Cells Occ /LPF Urine Bacteria 0 /HPF (0-FEW) Urine Mucus Mod /LPF Laboratory Tests Test 09/25/21 00:30 09/25/21 01:20 White Blood Count 6.5 x10^3/uL (4.0-11.0) Red Blood Count 5.02 x10^6/uL (4.30-5.70) Hemoglobin 15.2 g/dL (13.0-17.5) Hematocrit 45.9 % (39.0-53.0) Mean Corpuscular Volume 92 fL (79-100) Mean Corpuscular Hemoglobin 30 pg (25-35) Mean Corpuscular Hemoglobin Concent 33 g/dL (31-37) Red Cell Distribution Width 16.1 % (11.5-14.5) Platelet Count 101 x10^3/uL (140-400) Neutrophils (%) (Auto) 75 % (31-73) Lymphocytes (%) (Auto) 14 % (24-48) Monocytes (%) (Auto) 10 % (0-9) Eosinophils (%) (Auto) 2 % (0-3) Basophils (%) (Auto) 0 % (0-3) Neutrophils # (Auto) 4.8 x10^3/uL (1.8-7.7) Lymphocytes # (Auto) 0.9 x10^3/uL (1.0-4.8) Monocytes # (Auto) 0.6 x10^3/uL (0.0-1.1) Eosinophils # (Auto) 0.1 x10^3/uL (0.0-0.7) Basophils # (Auto) 0.0 x10^3/uL (0.0-0.2) Sodium Level 145 mmol/L (136-145) Potassium Level 3.3 mmol/L (3.5-5.1) Chloride Level 108 mmol/L (98-107) Carbon Dioxide Level 30 mmol/L (21-32) Anion Gap 7 (6-14) Blood Urea Nitrogen 20 mg/dL (8-26) Creatinine 1.2 mg/dL (0.7-1.3) Estimated GFR (Cockcroft-Gault) 71.2 BUN/Creatinine Ratio 17 (6-20) Glucose Level 115 mg/dL (70-99) Calcium Level 8.7 mg/dL (8.5-10.1) Total Bilirubin 0.7 mg/dL (0.2-1.0) Aspartate Amino Transf (AST/SGOT) 10 U/L (15-37) Alanine Aminotransferase (ALT/SGPT) 10 U/L (16-63) Alkaline Phosphatase 62 U/L (46-116) Total Protein 7.3 g/dL (6.4-8.2) Albumin 3.1 g/dL (3.4-5.0) Albumin/Globulin Ratio 0.7 (1.0-1.7) Urine Collection Type Unknown Urine Color Red Urine Clarity Turbid Urine pH 6.0 (<5.0-8.0) Urine Specific [place] 1.010 (1.000-1.030) Urine Protein 30 mg/dL (NEG-TRACE) Urine Glucose (UA) Negative mg/dL (NEG) Urine Ketones (Stick) Trace mg/dL (NEG) Urine Blood Large (NEG) Urine Nitrite Negative (NEG) Urine Bilirubin Negative (NEG) Urine Urobilinogen Dipstick 1.0 mg/dL (0.2 mg/dL) Urine Leukocyte Esterase Large (NEG) Urine RBC Tntc /HPF (0-2) Urine WBC 11-20 /HPF (0-4) Urine Squamous Epithelial Cells Occ /LPF Urine Bacteria 0 /HPF (0-FEW) Urine Mucus Mod /LPF VTE Prophylaxis Ordered VTE Prophylaxis Devices: No VTE Pharmacological Prophylaxi: Yes Assessment/Plan Assessment/Plan A/P: Intractable abdominal pain - likely due to urinary obstruction. No imaging at this time. Urinary retention - allen replaced on irrigation, starting to have flow after bedside manipulation. Urology consulted for further assessment BPH - cont flomax Chronic indwelling allen cather HTN - [facility] Thrombocytopenia - No clear etiology, monitor. Hold thromboprophylaxis Elevated Cr - unclear if ALFA, likely post-obstructive FEN - Regular diet PPX - SCDs FULL CODE Dispo - inpatient for above Justifications for Admission Other Justification HUGO NELSON MD Sep 25, 2021 07:58
[2021-09-25] MEDS ORDERED: TAMSULOSIN 0.4 MG CAP.ER.24H. PO SCH (10:30)
[2021-09-25] MEDS ORDERED: fentaNYL PF VIAL 100 MCG/2 ML VIAL IVP PRN (10:30)
[2021-09-25] MEDS ORDERED: hydrALAZINE 20 MG/ML VIAL. IVP PRN (10:30)
[2021-09-25 13:30] VITALS: BP 143/77
--- NOTE | 2021-09-25 14:16 | PDOC2 ---
UROLOGY CONSULT DOS: DATE: 09/25/21 TIME: 14:08 Reason for Consult: Gross hematuria, urinary retention 76M admitted to the hospital for acute urinary retention, gross hematuria and abdominal pain. Patient has had a catheter placed by urology since January 2021. [facility]. States that he was having trouble voiding and so a catheter has been placed due to trouble emptying. He states he has had a cystoscopy at in the past but is unsure what it showed. When he arrived in the emergency department today, Combs catheter had stopped draining. Bladder scan showed 600 cc of urine in the bladder. Combs catheter was replaced with an 18 [place] three-way catheter. He was having gross hematuria and started on CBI. Patient denies having any abdominal pain at this time. Urine is completely clear on CBI. He denies any previous interventions. He is a rather poor historian. Denies taking anticoagulation. ROS Constitutional: Denies fevers, chills, weakness Cardiovascular: Denies chest pain, palpitations Respiratory: Denies shortness of breath, wheezing, dyspnea on exertion GI: Denies abdominal pain, nausea, vomiting : Denies dysuria, frequency, urgency, +hematuria, urinary retention,-flank pain Skin: Denies rash, bruising Musculoskeletal: Denies extremity pain, extremity edema Psychiatric: Denies stress, anxiety Past Surgical History: No pertinent history Current Medications Current Medications Ondansetron HCl (Zofran) 4 mg PRN Q8HRS PRN IVP NAUSEA/VOMITING; Start 09/25/21 at 00:45; Stop 09/26/21 at 00:44 Morphine Sulfate (Morphine Sulfate) 4 mg PRN Q2HR PRN IVP PAIN; Start 09/25/21 at 00:45; Stop 09/26/21 at 00:44 Acetaminophen (Tylenol) 650 mg PRN Q4HRS PRN PO FEVER > 100.3'F; Start 09/25/21 at 00:45; Stop 09/26/21 at 00:44 Tamsulosin HCl (Flomax) 0.4 mg DAILY PO Last administered on 09/25/21at 11:06; Start 09/25/21 at 10:30 Fentanyl Citrate (Fentanyl 2ml Vial) 25 mcg PRN Q3HRS PRN IVP SEVERE PAIN 7-10; Start 09/25/21 at 10:30 Hydralazine HCl (Apresoline Inj) 10 mg PRN Q4HRS PRN IVP ELEVATED BP, SEE COMMENTS; Start 09/25/21 at 10:30 Active Scripts Active Cipro (Ciprofloxacin Hcl) 500 Mg Tablet 1 Tab PO BID 7 Days Cephalexin 500 Mg Tablet 1 Tab PO TID 10 Days Allergies: Coded Allergies: No Known Drug Allergies (Unverified , 08/20/21) Physical Examination GENERAL: awake, alert, oriented SKIN: warm, dry RESPIRATORY: Aerating well, symmetrical expansion GI: Soft, nontender, no guarding, no rebound : Normal anatomy, circumcised penis, 18 [place]ger three-way catheter on CBI at moderate rate, output totally clear. no lesions, no CVA tenderness MUSCULOSKELETAL: Moves all extremities, no edema NEURO: No gross abnormalities PSYCHIATRIC: Normal mood, normal affect, pleasant VITALS Vital Signs Date Time Temp Pulse Resp B/P (MAP) Pulse Ox O2 Delivery O2 Flow Rate FiO2 09/25/21 11:08 98.3 64 16 128/70 (89) 98 Room Air 98.3 Labs Laboratory Tests Test 09/25/21 00:30 09/25/21 01:20 White Blood Count 6.5 x10^3/uL (4.0-11.0) Red Blood Count 5.02 x10^6/uL (4.30-5.70) Hemoglobin 15.2 g/dL (13.0-17.5) Hematocrit 45.9 % (39.0-53.0) Mean Corpuscular Volume 92 fL (79-100) Mean Corpuscular Hemoglobin 30 pg (25-35) Mean Corpuscular Hemoglobin Concent 33 g/dL (31-37) Red Cell Distribution Width 16.1 % (11.5-14.5) Platelet Count 101 x10^3/uL (140-400) Neutrophils (%) (Auto) 75 % (31-73) Lymphocytes (%) (Auto) 14 % (24-48) Monocytes (%) (Auto) 10 % (0-9) Eosinophils (%) (Auto) 2 % (0-3) Basophils (%) (Auto) 0 % (0-3) Neutrophils # (Auto) 4.8 x10^3/uL (1.8-7.7) Lymphocytes # (Auto) 0.9 x10^3/uL (1.0-4.8) Monocytes # (Auto) 0.6 x10^3/uL (0.0-1.1) Eosinophils # (Auto) 0.1 x10^3/uL (0.0-0.7) Basophils # (Auto) 0.0 x10^3/uL (0.0-0.2) Sodium Level 145 mmol/L (136-145) Potassium Level 3.3 mmol/L (3.5-5.1) Chloride Level 108 mmol/L (98-107) Carbon Dioxide Level 30 mmol/L (21-32) Anion Gap 7 (6-14) Blood Urea Nitrogen 20 mg/dL (8-26) Creatinine 1.2 mg/dL (0.7-1.3) Estimated GFR (Cockcroft-Gault) 71.2 BUN/Creatinine Ratio 17 (6-20) Glucose Level 115 mg/dL (70-99) Calcium Level 8.7 mg/dL (8.5-10.1) Total Bilirubin 0.7 mg/dL (0.2-1.0) Aspartate Amino Transf (AST/SGOT) 10 U/L (15-37) Alanine Aminotransferase (ALT/SGPT) 10 U/L (16-63) Alkaline Phosphatase 62 U/L (46-116) Total Protein 7.3 g/dL (6.4-8.2) Albumin 3.1 g/dL (3.4-5.0) Albumin/Globulin Ratio 0.7 (1.0-1.7) Urine Collection Type Unknown Urine Color Red Urine Clarity Turbid Urine pH 6.0 (<5.0-8.0) Urine Specific [place] 1.010 (1.000-1.030) Urine Protein 30 mg/dL (NEG-TRACE) Urine Glucose (UA) Negative mg/dL (NEG) Urine Ketones (Stick) Trace mg/dL (NEG) Urine Blood Large (NEG) Urine Nitrite Negative (NEG) Urine Bilirubin Negative (NEG) Urine Urobilinogen Dipstick 1.0 mg/dL (0.2 mg/dL) Urine Leukocyte Esterase Large (NEG) Urine RBC Tntc /HPF (0-2) Urine WBC 11-20 /HPF (0-4) Urine Squamous Epithelial Cells Occ /LPF Urine Bacteria 0 /HPF (0-FEW) Urine Mucus Mod /LPF Laboratory Tests Test 09/25/21 00:30 09/25/21 01:20 White Blood Count 6.5 x10^3/uL (4.0-11.0) Red Blood Count 5.02 x10^6/uL (4.30-5.70) Hemoglobin 15.2 g/dL (13.0-17.5) Hematocrit 45.9 % (39.0-53.0) Mean Corpuscular Volume 92 fL (79-100) Mean Corpuscular Hemoglobin 30 pg (25-35) Mean Corpuscular Hemoglobin Concent 33 g/dL (31-37) Red Cell Distribution Width 16.1 % (11.5-14.5) Platelet Count 101 x10^3/uL (140-400) Neutrophils (%) (Auto) 75 % (31-73) Lymphocytes (%) (Auto) 14 % (24-48) Monocytes (%) (Auto) 10 % (0-9) Eosinophils (%) (Auto) 2 % (0-3) Basophils (%) (Auto) 0 % (0-3) Neutrophils # (Auto) 4.8 x10^3/uL (1.8-7.7) Lymphocytes # (Auto) 0.9 x10^3/uL (1.0-4.8) Monocytes # (Auto) 0.6 x10^3/uL (0.0-1.1) Eosinophils # (Auto) 0.1 x10^3/uL (0.0-0.7) Basophils # (Auto) 0.0 x10^3/uL (0.0-0.2) Sodium Level 145 mmol/L (136-145) Potassium Level 3.3 mmol/L (3.5-5.1) Chloride Level 108 mmol/L (98-107) Carbon Dioxide Level 30 mmol/L (21-32) Anion Gap 7 (6-14) Blood Urea Nitrogen 20 mg/dL (8-26) Creatinine 1.2 mg/dL (0.7-1.3) Estimated GFR (Cockcroft-Gault) 71.2 BUN/Creatinine Ratio 17 (6-20) Glucose Level 115 mg/dL (70-99) Calcium Level 8.7 mg/dL (8.5-10.1) Total Bilirubin 0.7 mg/dL (0.2-1.0) Aspartate Amino Transf (AST/SGOT) 10 U/L (15-37) Alanine Aminotransferase (ALT/SGPT) 10 U/L (16-63) Alkaline Phosphatase 62 U/L (46-116) Total Protein 7.3 g/dL (6.4-8.2) Albumin 3.1 g/dL (3.4-5.0) Albumin/Globulin Ratio 0.7 (1.0-1.7) Urine Collection Type Unknown Urine Color Red Urine Clarity Turbid Urine pH 6.0 (<5.0-8.0) Urine Specific [place] 1.010 (1.000-1.030) Urine Protein 30 mg/dL (NEG-TRACE) Urine Glucose (UA) Negative mg/dL (NEG) Urine Ketones (Stick) Trace mg/dL (NEG) Urine Blood Large (NEG) Urine Nitrite Negative (NEG) Urine Bilirubin Negative (NEG) Urine Urobilinogen Dipstick 1.0 mg/dL (0.2 mg/dL) Urine Leukocyte Esterase Large (NEG) Urine RBC Tntc /HPF (0-2) Urine WBC 11-20 /HPF (0-4) Urine Squamous Epithelial Cells Occ /LPF Urine Bacteria 0 /HPF (0-FEW) Urine Mucus Mod /LPF Images --Gross hematuria Seems to have resolved after several hours of CBI. CBI was turned off. Restart if becoming bloody. We will get CT urogram to visualize any upper tract abnormalities causing his gross hematuria. Patient will need to follow-up in the clinic for a nonemergent cystoscopy. --Acute urinary retention Combs catheter had been clogged. Nursing has exchanged this and having good urine output. Patient does have chronic indwelling Combs catheter since summer 2020, managed by urology. Circumstances for placement are unclear. We will start patient on Flomax 0.4 mg twice daily. If urine output continues to be clear, can trial a voiding trial in the morning at 6 AM. If unsuccessful, replace Combs catheter. He can maintain this for the next 2 weeks and follow-up with [facility] for voiding trial and cystoscopy as patient seems to be very dissatisfied with urology and looking for a new urologist. --UTI Urine culture showing Enterococcus faecalis. Would treat with 14 days of culture specific antibiotics. This could be contributing to his gross hematuria. We will follow up on CT urogram. Please call with further urology questions. KENDALL CHILD Sep 25, 2021 14:16
[2021-09-25] MEDS ORDERED: IOHEXOL 300 MG/ML 100ML VIAL. IV ONE (14:30)
[2021-09-25] MEDS ORDERED: CONTRAST GIVEN. MC PRN (14:45)
[2021-09-25] MEDS: FINASTERIDE 5 MG TABLET. PO SCH (15:00)
[2021-09-25 15:32] VITALS: BP 139/87
--- NOTE | 2021-09-25 16:35 | RAD ---
CT abdomen pelvis with and without contrast dated 09/25/2021. COMPARISON: None. INDICATION: Gross hematuria. TECHNIQUE: Contiguous axial imaging the abdomen pelvis performed with and without the administration of 75 cc Om nipaque 300. Study was performed as dedicated CT urogram using delayed imaging. One or more of the following individualized dose reduction techniques were utilized for this examinat ion: 1. Automated exposure control 2. Adjustment of the mA and/or kV according to patient size 3. Use of iterative reconstruction technique FINDINGS: Precontrast imaging shows no evidence of calcific renal or ureteral stone. No calcific stone within t he urinary bladder. There is a large laminated calcific stone at the gallbladder neck with dilation o f the gallbladder and increased density in the gallbladder lumen. Postcontrast imaging shows symmetric bilateral renal enhancement. Low-density focus at the midpole le ft kidney measuring 1.8 cm shows no definite enhancement, although the margins are somewhat ill-defin ed and difficult to evaluate. Delayed imaging shows symmetric filling of the bilateral renal collecting systems proximally. The dis kathy ureters are not well opacified. The urinary bladder is collapsed with Combs catheter in place. Th ere is circumferential bladder wall thickening with inflammatory stranding in the pericystic fat. Pro state gland is markedly enlarged and displaces the urinary bladder anteriorly. Liver is of diffuse low density suggesting mild fatty infiltration. Spleen is normal in size. Pancrea s and adrenal glands are unremarkable. Unopacified GI tract is normal in caliber and contour. No taqueria l wall thickening. No inflammatory stranding in the mesentery. No ascites or lymphadenopathy. There a re atherosclerotic changes of the abdominal aorta. There is some eccentric soft plaque toward the rig ht. No evidence of aneurysm. Bone window show no acute finding. Multilevel spondylosis. Images of lung bases show linear opacities in the bilateral lower lobes, likely scar or atelectasis. IMPRESSION: 1. No evidence of renal stone, suspicious renal mass or hydronephrosis. 2. There is a vague area of low density in the midpole left kidney that most likely represents a smal l complex cyst but is not well evaluated on this exam. Suggest follow-up imaging in 6 months to ensur e stability. 3. No definite urothelial lesion. The distal ureters are not well opacified and not well evaluated. 4. There is diffuse wall thickening of the urinary bladder with inflammatory stranding in the pericys tic fat. This could represent acute cystitis. Correlate with urinalysis. 5. Marked prostatomegaly which displaces the urinary bladder anteriorly. There is also some distortio n and tortuosity of the distal ureters due to displaced urinary bladder. 6. Cholelithiasis with gallbladder distention and gallbladder sludge. Associated acute or chronic cho lecystitis not excluded. Electronically signed by: Desean Reyes MD (09/25/2021 4:33 PM) KAYLA
[2021-09-25 19:00] VITALS: BP 139/92
[2021-09-25] MEDS: TAMSULOSIN 0.4 MG CAP.ER.24H. PO SCH (21:04)
[2021-09-25] MEDS: AMPICILLIN SODIUM 1 GM in IV NORMAL SALINE 50ML 50 ML IV SCH (21:04)
[2021-09-25 23:05] VITALS: BP 140/83
[2021-09-26] MEDS: AMPICILLIN SODIUM 1 GM in IV NORMAL SALINE 50ML 50 ML IV SCH ×6 (00:21→19:52)
[2021-09-26 03:00] VITALS: BP 139/81
[2021-09-26 04:28] LABS: BASO % 1 % (0-3); EOS # 0.2 x10^3/uL (0.0-0.7); EOS % 4 % (0-3); HEMATOCRIT 43.8 % (39.0-53.0); HEMOGLOBIN 14.5 g/dL (13.0-17.5); LYMPH # 1.9 x10^3/uL (1.0-4.8); LYMPH % 40 % (24-48); MEAN CORPUSCULAR HEMOGLOBIN 30 pg (25-35); MEAN CORPUSCULAR HGB CONC 33 g/dL (31-37); MEAN CORPUSCULAR VOLUME 92 fL (79-100); MONO # 0.5 x10^3/uL (0.0-1.1); MONO % 10 % (0-9); NEUT # 2.2 x10^3/uL (1.8-7.7); NEUT % 46 % (31-73); PLATELET COUNT 103 x10^3/uL (140-400); RED BLOOD COUNT 4.78 x10^6/uL (4.30-5.70); RED CELL DISTRIBUTION WIDTH 16.3 % (11.5-14.5); WHITE BLOOD COUNT 4.8 x10^3/uL (4.0-11.0)
[2021-09-26 07:42] VITALS: BP 122/74
--- NOTE | 2021-09-26 08:30 | PDOC ---
[facility] [facility] PROGRESS NOTE Date of Service DOS: DATE: 09/26/21 TIME: 08:28 Chief Complaint Chief Complaint A/P: Intractable abdominal pain - likely due to urinary obstruction. Has improved Urinary retention - allen replaced on irrigation, starting to have flow after bedside manipulation. Urology consulted for further assessment BPH - cont flomax Chronic indwelling allen cather HTN - reconcile [facility] Thrombocytopenia - No clear etiology, monitor. Hold thromboprophylaxis Elevated Cr - unclear if ALFA, likely post-obstructive Will try voiding trial today. No gross hematuria in allen bag FEN - Regular diet PPX - SCDs FULL CODE Dispo - inpatient for above History of Present Illness History of Present Illness 09/26 Patient evaluated examined at bedside. He was sitting at edge of bed eating his breakfast. He was doing well no complaints or pleasant. Allen bag is no evidence of further hematuria we will try a voiding trial per urology recommendations. Patient agreeable to having Allen replaced if voiding trial does not go well. Plan discussed with bedside RN. Vitals/I&O Vitals/I&O: Vital Signs Date Time Temp Pulse Resp B/P (MAP) Pulse Ox O2 Delivery O2 Flow Rate FiO2 09/26/21 07:42 98.5 65 20 122/74 (90) 96 Room Air 98.5 I & O 09/25/21 09/25/21 09/26/21 15:00 23:00 07:00 Output Total 3500 ml 1500 ml 900 ml Balance -3500 ml -1500 ml -900 ml Physical Exam General: Alert, Oriented X3, Cooperative, mild distress Heart: Regular rate Lungs: Clear Abdomen: Normal bowel sounds, Soft, No tenderness, No hepatosplenomegaly, No masses Extremities: No clubbing, No cyanosis, No edema, Normal pulses, No tenderness/swelling Skin: No rashes, No breakdown, No significant lesion Labs Labs: Laboratory Tests Test 09/26/21 03:00 White Blood Count 4.8 x10^3/uL (4.0-11.0) Red Blood Count 4.78 x10^6/uL (4.30-5.70) Hemoglobin 14.5 g/dL (13.0-17.5) Hematocrit 43.8 % (39.0-53.0) Mean Corpuscular Volume 92 fL (79-100) Mean Corpuscular Hemoglobin 30 pg (25-35) Mean Corpuscular Hemoglobin Concent 33 g/dL (31-37) Red Cell Distribution Width 16.3 % (11.5-14.5) Platelet Count 103 x10^3/uL (140-400) Neutrophils (%) (Auto) 46 % (31-73) Lymphocytes (%) (Auto) 40 % (24-48) Monocytes (%) (Auto) 10 % (0-9) Eosinophils (%) (Auto) 4 % (0-3) Basophils (%) (Auto) 1 % (0-3) Neutrophils # (Auto) 2.2 x10^3/uL (1.8-7.7) Lymphocytes # (Auto) 1.9 x10^3/uL (1.0-4.8) Monocytes # (Auto) 0.5 x10^3/uL (0.0-1.1) Eosinophils # (Auto) 0.2 x10^3/uL (0.0-0.7) Basophils # (Auto) 0.0 x10^3/uL (0.0-0.2) Assessment and Plan Assessmemt and Plan Problems Medical Problems: (1) Allen catheter problem Status: Acute Comment Review of Relevant I have reviewed the following items bonnie (where applicable) has been applied. Medications: Current Medications Medications (Trade) Dose Ordered Sig/Izabella Route PRN Reason Start Time Stop Time Status Last Admin Dose Admin Tamsulosin HCl (Flomax) 0.4 mg DAILY PO 09/25/21 10:30 09/25/21 14:20 DC 09/25/21 11:06 Tamsulosin HCl (Flomax) 0.4 mg BID PO 09/25/21 21:00 09/25/21 21:04 Iohexol (Omnipaque 300 Mg/ml) 75 ml 1X ONCE IV 09/25/21 14:30 09/25/21 14:32 DC 09/25/21 14:30 Ampicillin Sodium 1 gm/Sodium Chloride 50 ml @ 100 mls/hr Q4HRS IV 09/25/21 20:00 09/26/21 04:16 Justifications for Admission Other Justification HUGO JOHNS MD Sep 26, 2021 08:30
[2021-09-26] MEDS: TAMSULOSIN 0.4 MG CAP.ER.24H. PO SCH ×2 (08:35→21:09)
[2021-09-26] MEDS: FINASTERIDE 5 MG TABLET. PO SCH (08:35)
--- NOTE | 2021-09-26 09:40 | NUR ---
3way allen from CBI was removed at 0940 for voiding trial per urology
[2021-09-26 11:03] VITALS: BP 141/87
[2021-09-26] MEDS: NICOTINE 14MG PATCH. TD SCH (12:25)
--- NOTE | 2021-09-26 13:41 | PDOC ---
SUBJECTIVE Subjective Per RN, pt very confused today OBJECTIVE Objective has voided a few times since allen out 5hrs ago, total output about 50ml Vital Signs Vital Signs Date Time Temp Pulse Resp B/P (MAP) Pulse Ox O2 Delivery O2 Flow Rate FiO2 09/26/21 11:03 98.6 56 18 141/87 (105) 97 Room Air 98.6 09/26/21 08:00 Room Air 09/26/21 07:42 98.5 65 20 122/74 (90) 96 Room Air 98.5 09/26/21 03:00 99.0 63 14 139/81 (100) 94 Room Air 99.0 09/25/21 23:05 99.1 55 14 140/83 (102) 94 Room Air 99.1 09/25/21 20:00 Room Air 09/25/21 19:00 99.1 52 14 139/92 (108) 94 Room Air 99.1 09/25/21 16:04 Room Air 09/25/21 15:32 98.5 65 20 139/87 (104) 95 Room Air 98.5 I & O Intake and Output 09/26/21 07:00 Output Total 5900 ml Balance -5900 ml Output Urine Total 5900 ml PHYSICAL EXAM Physical Exam no distress, resting comfortably nonlabored breathing nontender abd ASSESSMENT/PLAN Assessment/Plan --Gross hematuria Resolved. CTU shows no acute findings. BPH--start finasteride. Patient will need to follow-up in the clinic for a nonemergent cystoscopy. --Acute urinary retention Patient does have chronic indwelling Allen catheter since summer 2020, managed by urology. Circumstances for placement are unclear. We will start patient on Flomax 0.4 mg twice daily. VT today. Has had minimal output. D/w RN to bladder scan and replace allen in >350mL. He can maintain this for the next 2 weeks and follow-up outpatient. --UTI Urine culture showing Enterococcus faecalis. Would treat with 14 days of culture specific antibiotics. This could be contributing to his gross hematuria. COMMENT Lab Laboratory Tests Test 09/26/21 03:00 White Blood Count 4.8 x10^3/uL (4.0-11.0) Red Blood Count 4.78 x10^6/uL (4.30-5.70) Hemoglobin 14.5 g/dL (13.0-17.5) Hematocrit 43.8 % (39.0-53.0) Mean Corpuscular Volume 92 fL (79-100) Mean Corpuscular Hemoglobin 30 pg (25-35) Mean Corpuscular Hemoglobin Concent 33 g/dL (31-37) Red Cell Distribution Width 16.3 % (11.5-14.5) Platelet Count 103 x10^3/uL (140-400) Neutrophils (%) (Auto) 46 % (31-73) Lymphocytes (%) (Auto) 40 % (24-48) Monocytes (%) (Auto) 10 % (0-9) Eosinophils (%) (Auto) 4 % (0-3) Basophils (%) (Auto) 1 % (0-3) Neutrophils # (Auto) 2.2 x10^3/uL (1.8-7.7) Lymphocytes # (Auto) 1.9 x10^3/uL (1.0-4.8) Monocytes # (Auto) 0.5 x10^3/uL (0.0-1.1) Eosinophils # (Auto) 0.2 x10^3/uL (0.0-0.7) Basophils # (Auto) 0.0 x10^3/uL (0.0-0.2) Imaging FINDINGS: Precontrast imaging shows no evidence of calcific renal or ureteral stone. No calcific stone within the urinary bladder. There is a large laminated calcific stone at the gallbladder neck with dilation of the gallbladder and increased density in the gallbladder lumen. Postcontrast imaging shows symmetric bilateral renal enhancement. Low-density focus at the midpole left kidney measuring 1.8 cm shows no definite enhancement, although the margins are somewhat ill-defined and difficult to evaluate. Delayed imaging shows symmetric filling of the bilateral renal collecting systems proximally. The distal ureters are not well opacified. The urinary bladder is collapsed with Allen catheter in place. There is circumferential bladder wall thickening with inflammatory stranding in the pericystic fat. Prostate gland is markedly enlarged and displaces the urinary bladder anteriorly. Liver is of diffuse low density suggesting mild fatty infiltration. Spleen is normal in size. Pancreas and adrenal glands are unremarkable. Unopacified GI tract is normal in caliber and contour. No bowel wall thickening. No inflammatory stranding in the mesentery. No ascites or lymphadenopathy. There are atherosclerotic changes of the abdominal aorta. There is some eccentric soft plaque toward the right. No evidence of aneurysm. Bone window show no acute finding. Multilevel spondylosis. Images of lung bases show linear opacities in the bilateral lower lobes, likely scar or atelectasis. IMPRESSION: 1. No evidence of renal stone, suspicious renal mass or hydronephrosis. 2. There is a vague area of low density in the midpole left kidney that most likely represents a small complex cyst but is not well evaluated on this exam. Suggest follow-up imaging in 6 months to ensure stability. 3. No definite urothelial lesion. The distal ureters are not well opacified and not well evaluated. 4. There is diffuse wall thickening of the urinary bladder with inflammatory stranding in the pericystic fat. This could represent acute cystitis. Correlate with urinalysis. 5. Marked prostatomegaly which displaces the urinary bladder anteriorly. There is also some distortion and tortuosity of the distal ureters due to displaced urinary bladder. 6. Cholelithiasis with gallbladder distention and gallbladder sludge. Associated acute or chronic cholecystitis not excluded. Justifications for Admission Other Justification ELENA DUNBAR Sep 26, 2021 13:41
--- NOTE | 2021-09-26 13:46 | NUR ---
SW following. Discussed with RN, per ED summary pt is from home with family, per H&P pt from home alone and grandson visits. RN unable to contact any family as pt quite confused. Pt on room air, regular diet. Urology following. Pt gets up on his own. SW will continue to follow.
[2021-09-26] MEDS ORDERED: HALOPERIDOL LACTATE 5 MG/ML VIAL. IVP PRN (15:00)
[2021-09-26 15:04] VITALS: BP 132/78
[2021-09-26] MEDS ORDERED: HALOPERIDOL LACTATE 5 MG/ML VIAL. IM PRN (15:15)
--- NOTE | 2021-09-26 16:17 | NUR ---
bladder scanned pt at 1530 and pt PVR was 794, allen cathether placed at this time per urology
[2021-09-26] MEDS: LACTOBACILLUS RHAMNOSUS GG 1 CAPSULE. PO SCH (21:09)
[2021-09-27] MEDS: AMPICILLIN SODIUM 1 GM in IV NORMAL SALINE 50ML 50 ML IV SCH ×3 (00:10→08:20)
[2021-09-27 04:00] VITALS: BP 138/74
[2021-09-27 07:00] VITALS: BP_SYST 155; BP_SYST 161; BP_DIAS 112; BP_DIAS 59
[2021-09-27] MEDS: LACTOBACILLUS RHAMNOSUS GG 1 CAPSULE. PO SCH ×2 (08:38→20:45)
[2021-09-27] MEDS: FINASTERIDE 5 MG TABLET. PO SCH (08:38)
[2021-09-27] MEDS: NICOTINE 14MG PATCH. TD SCH (08:38)
[2021-09-27] MEDS: TAMSULOSIN 0.4 MG CAP.ER.24H. PO SCH ×2 (08:39→20:45)
--- NOTE | 2021-09-27 09:11 | PDOC ---
SUBJECTIVE Subjective Pt denies complaints, no pain. \eating breakfast. OBJECTIVE Objective PVR yesterday 794mL, allen was replaced Vital Signs Vital Signs Date Time Temp Pulse Resp B/P (MAP) Pulse Ox O2 Delivery O2 Flow Rate FiO2 09/27/21 08:45 85 161/112 09/27/21 07:00 98.2 85 18 161/112 (128) 94 Room Air 98.2 09/27/21 04:00 97.8 68 20 138/74 (95) 94 Room Air 97.8 09/27/21 03:00 14 09/26/21 23:01 14 09/26/21 20:00 Room Air 09/26/21 19:00 14 09/26/21 15:04 97.8 61 20 132/78 (96) 96 Room Air 97.8 09/26/21 11:03 98.6 56 18 141/87 (105) 97 Room Air 98.6 I & O Intake and Output 09/27/21 07:00 Intake Total 430 ml Output Total 1900 ml Balance -1470 ml Intake Oral 280 ml IV Total 150 ml Output Urine Total 1900 ml # Voids 3 PHYSICAL EXAM Physical Exam NAD, comfortable nonlabored breathing nontender abd allen draining yellow urine ASSESSMENT/PLAN Assessment/Plan --Gross hematuria Resolved. CTU shows no acute findings. BPH--start finasteride. Patient will need to follow-up in the clinic for a nonemergent cystoscopy. --Acute urinary retention Patient does have chronic indwelling Allen catheter since summer 2020, managed by urology. Circumstances for placement are unclear. We will start patient on Flomax 0.4 mg twice daily. Failed VT yesterday with 800mL in bladder, allen was replaced. Pt may f/u with [facility] or [facility]. If with us, we will obtain records prior to another voiding trial in clinic. May need chronic indwelling allen with monthly changes. Will sign off, please call with questions. Justifications for Admission Other Justification ELENA DUNBAR Sep 27, 2021 09:11
[2021-09-27 09:50] LABS: BASO % 1 % (0-3); EOS # 0.1 x10^3/uL (0.0-0.7); EOS % 3 % (0-3); HEMATOCRIT 51.4 % (39.0-53.0); HEMOGLOBIN 16.8 g/dL (13.0-17.5); LYMPH % 19 % (24-48); MEAN CORPUSCULAR HEMOGLOBIN 30 pg (25-35); MEAN CORPUSCULAR HGB CONC 33 g/dL (31-37); MEAN CORPUSCULAR VOLUME 91 fL (79-100); MONO # 0.4 x10^3/uL (0.0-1.1); MONO % 8 % (0-9); NEUT # 3.4 x10^3/uL (1.8-7.7); NEUT % 69 % (31-73); PLATELET COUNT 117 x10^3/uL (140-400); RED BLOOD COUNT 5.63 x10^6/uL (4.30-5.70); RED CELL DISTRIBUTION WIDTH 16.2 % (11.5-14.5)
[2021-09-27 09:58] LABS: CALCIUM 8.9 mg/dL (8.5-10.1); GFR 87.9; POTASSIUM 3.7 mmol/L (3.5-5.1)
[2021-09-27 11:00] VITALS: BP 135/92
--- NOTE | 2021-09-27 11:21 | PDOC ---
[employer] PROGRESS NOTE Date of Service DOS: DATE: 09/27/21 TIME: 11:20 Chief Complaint Chief Complaint A/P: Intractable abdominal pain - likely due to urinary obstruction. Has improved Urinary retention - allen replaced on irrigation, starting to have flow after bedside manipulation. Urology consulted for further assessment BPH - cont flomax Chronic indwelling allen cather HTN - reconcile [facility] Thrombocytopenia - No clear etiology, monitor. Hold thromboprophylaxis Elevated Cr - unclear if ALFA, likely post-obstructive Will try voiding trial today. No gross hematuria in allen bag FEN - Regular diet PPX - SCDs FULL CODE Dispo - inpatient for above History of Present Illness History of Present Illness 09/27 Evaluate examined at bedside. Up in bed eating breakfast. Voiding trial did not go well yesterday and required Allen replacement. This morning no complaints. Mental status does seem a bit improved from events of yesterday. Continue IV antibiotics for UTI treatment. Suspect this is strongly contributing to his mental status. Plan discussed with bedside RN. 09/26 Patient evaluated examined at bedside. He was sitting at edge of bed eating his breakfast. He was doing well no complaints or pleasant. Allen bag is no evidence of further hematuria we will try a voiding trial per urology recommendations. Patient agreeable to having Allen replaced if voiding trial does not go well. Plan discussed with bedside RN. Vitals/I&O Vitals/I&O: Vital Signs Date Time Temp Pulse Resp B/P (MAP) Pulse Ox O2 Delivery O2 Flow Rate FiO2 09/27/21 08:45 85 161/112 09/27/21 07:00 98.2 18 94 Room Air 98.2 I & O 09/26/21 09/26/21 09/27/21 15:00 23:00 07:00 Intake Total 380 ml 50 ml 0 ml Output Total 550 ml 1350 ml Balance -170 ml 50 ml -1350 ml Physical Exam General: Alert, Oriented X3, Cooperative, mild distress Heart: Regular rate Lungs: Clear Abdomen: Normal bowel sounds, Soft, No tenderness, No hepatosplenomegaly, No masses Extremities: No clubbing, No cyanosis, No edema, Normal pulses, No tenderness/swelling Skin: No rashes, No breakdown, No significant lesion Labs Labs: Laboratory Tests Test 09/27/21 09:30 White Blood Count 5.0 x10^3/uL (4.0-11.0) Red Blood Count 5.63 x10^6/uL (4.30-5.70) Hemoglobin 16.8 g/dL (13.0-17.5) Hematocrit 51.4 % (39.0-53.0) Mean Corpuscular Volume 91 fL (79-100) Mean Corpuscular Hemoglobin 30 pg (25-35) Mean Corpuscular Hemoglobin Concent 33 g/dL (31-37) Red Cell Distribution Width 16.2 % (11.5-14.5) Platelet Count 117 x10^3/uL (140-400) Neutrophils (%) (Auto) 69 % (31-73) Lymphocytes (%) (Auto) 19 % (24-48) Monocytes (%) (Auto) 8 % (0-9) Eosinophils (%) (Auto) 3 % (0-3) Basophils (%) (Auto) 1 % (0-3) Neutrophils # (Auto) 3.4 x10^3/uL (1.8-7.7) Lymphocytes # (Auto) 1.0 x10^3/uL (1.0-4.8) Monocytes # (Auto) 0.4 x10^3/uL (0.0-1.1) Eosinophils # (Auto) 0.1 x10^3/uL (0.0-0.7) Basophils # (Auto) 0.0 x10^3/uL (0.0-0.2) Sodium Level 146 mmol/L (136-145) Potassium Level 3.7 mmol/L (3.5-5.1) Chloride Level 104 mmol/L (98-107) Carbon Dioxide Level 32 mmol/L (21-32) Anion Gap 10 (6-14) Blood Urea Nitrogen 15 mg/dL (8-26) Creatinine 1.0 mg/dL (0.7-1.3) Estimated GFR (Cockcroft-Gault) 87.9 Glucose Level 88 mg/dL (70-99) Calcium Level 8.9 mg/dL (8.5-10.1) Assessment and Plan Assessmemt and Plan Problems Medical Problems: (1) Allen catheter problem Status: Acute Comment Review of Relevant I have reviewed the following items bonnie (where applicable) has been applied. Medications: Current Medications Medications (Trade) Dose Ordered Sig/Izabella Route PRN Reason Start Time Stop Time Status Last Admin Dose Admin Lactobacillus Rhamnosus (Culturelle) 1 cap BID PO 09/26/21 21:00 09/27/21 08:38 Nicotine (Nicoderm Cq 14mg) 1 patch DAILY TD 09/26/21 12:00 09/27/21 08:38 Lorazepam (Ativan Inj) 2 mg PRN Q4HRS PRN IVP ANXIETY / AGITATION 09/26/21 12:30 09/27/21 03:10 Haloperidol Lactate (Haldol Inj) 5 mg PRN Q6HRS PRN IVP AGITATION 09/26/21 15:00 09/26/21 15:07 DC 09/26/21 15:05 Justifications for Admission Other Justification HUGO JOHNS MD Sep 27, 2021 11:21
--- NOTE | 2021-09-27 11:28 | RAD ---
EXAM: Head CT without contrast. HISTORY: Loss of balance. Confusion. TECHNIQUE: Computed tomographic images of the head were obtained without contrast. *One or more of the following individualized dose reduction techniques were utilized for this examina tion: 1. Automated exposure control. 2. Adjustment of the mA and/or kV according to patient size. 3. Use of iterative reconstruction technique. COMPARISON: None. FINDINGS: There is no hemorrhage. There are chronic appearing infarcts involving the bilateral basal ganglia, right external capsule and left thalamus. There are extensive white matter changes likely du e to chronic small vessel disease. There is cerebral volume loss. The visualized portions of the orbi ts, paranasal sinuses and mastoid air cells are unremarkable. No suspicious calvarial lesion is seen. IMPRESSION: 1. 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 2. Extensive white matter changes, likely due to chronic small vessel disease. 3. Note is made that MRI is more sensitive for acute infarction. Electronically signed by: Joaquina Escalante MD (09/27/2021 11:25 AM) [id number]
[2021-09-27] MEDS ORDERED: AMPICILLIN/SULBACTAM 3 GM in IV NORMAL SALINE 100ML 100 ML IV SCH (12:00)
[2021-09-27 15:00] VITALS: BP 130/95
[2021-09-27] MEDS: AMPICILLIN/SULBACTAM 3 GM in IV DEXTROSE 5% 100ML 100 ML IV SCH (17:05)
[2021-09-27 19:00] VITALS: BP 148/103
[2021-09-27 23:00] VITALS: BP 130/87
[2021-09-28] MEDS: AMPICILLIN/SULBACTAM 3 GM in IV DEXTROSE 5% 100ML 100 ML IV SCH ×5 (00:11→23:51)
[2021-09-28 07:00] VITALS: BP 126/76
[2021-09-28] MEDS: FINASTERIDE 5 MG TABLET. PO SCH (08:37)
[2021-09-28] MEDS: TAMSULOSIN 0.4 MG CAP.ER.24H. PO SCH ×2 (08:37→21:54)
[2021-09-28] MEDS: NICOTINE 14MG PATCH. TD SCH (08:37)
[2021-09-28] MEDS: LACTOBACILLUS RHAMNOSUS GG 1 CAPSULE. PO SCH ×2 (08:39→21:54)
--- NOTE | 2021-09-28 09:41 | NUR ---
SW following. Discussed with RN, pt from home alone (family checks on him), room air, regular diet. Urology following. Pt will discharge home when medically stable. [facility] has had a referral for this patient in the past but could not connect with pt or family. ASHUTOSH will continue to follow.
[2021-09-28 11:00] VITALS: BP 132/84
--- NOTE | 2021-09-28 12:19 | PDOC ---
[employer] [facility] PROGRESS NOTE Date of Service DOS: DATE: 09/28/21 TIME: 12:18 Chief Complaint Chief Complaint A/P: Intractable abdominal pain - likely due to urinary obstruction. Has improved Urinary retention - allen replaced on irrigation, starting to have flow after bedside manipulation. Urology consulted for further assessment BPH - cont flomax Chronic indwelling allen cather HTN - reconcile [facility] med[facility] Thrombocytopenia - No clear etiology, monitor. Hold thromboprophylaxis Elevated Cr - unclear if ALFA, likely post-obstructive Will try voiding trial today. No gross hematuria in allen bag FEN - Regular diet PPX - SCDs FULL CODE Dispo - inpatient for above History of Present Illness History of Present Illness 09/28 Patient evaluated examined at bedside. Resting in bed very pleasant said that he continues to feel better. Continuing antibiotics for UTI treatment. Mental status actually seems a little bit worse than yesterday. We will see if therapy can eval. Plan discussed with bedside RN. 09/27 Evaluate examined at bedside. Up in bed eating breakfast. Voiding trial did not go well yesterday and required Allen replacement. This morning no complaints. Mental status does seem a bit improved from events of yesterday. Continue IV antibiotics for UTI treatment. Suspect this is strongly contributing to his mental status. Plan discussed with bedside RN. 09/26 Patient evaluated examined at bedside. He was sitting at edge of bed eating his breakfast. He was doing well no complaints or pleasant. Allen bag is no evidence of further hematuria we will try a voiding trial per urology recommendations. Patient agreeable to having Allen replaced if voiding trial does not go well. Plan discussed with bedside RN. Vitals/I&O Vitals/I&O: Vital Signs Date Time Temp Pulse Resp B/P (MAP) Pulse Ox O2 Delivery O2 Flow Rate FiO2 09/28/21 11:00 98.0 83 18 132/84 (100) 97 Room Air 98.0 I & O 09/27/21 09/27/21 09/28/21 15:00 23:00 07:00 Intake Total 0 ml Output Total 1500 ml 350 ml Balance -1500 ml -350 ml Physical Exam General: Alert, Oriented X3, Cooperative, mild distress Heart: Regular rate Lungs: Clear Abdomen: Normal bowel sounds, Soft, No tenderness, No hepatosplenomegaly, No masses Extremities: No clubbing, No cyanosis, No edema, Normal pulses, No tenderness/swelling Skin: No rashes, No breakdown, No significant lesion Assessment and Plan Assessmemt and Plan Problems Medical Problems: (1) Allen catheter problem Status: Acute Comment Review of Relevant I have reviewed the following items bonnie (where applicable) has been applied. Medications: Current Medications Medications (Trade) Dose Ordered Sig/Izabella Route PRN Reason Start Time Stop Time Status Last Admin Dose Admin Ampicillin Sodium/ Sulbactam Sodium 3 gm/Dextrose 100 ml @ 200 mls/hr Q6HRS IV 09/27/21 18:00 09/28/21 05:55 Justifications for Admission Other Justification HUGO JOHNS MD Sep 28, 2021 12:19
[2021-09-28 15:00] VITALS: BP 124/90
[2021-09-28 19:15] VITALS: BP 142/93
--- NOTE | 2021-09-28 21:00 | NUR ---
Patient accidently pulled allen catheter out. Allen catheter was replaced with 16Fr catheter with 10cc balloon. Urine clear yellow with mild bleeding from around meatus. Will continue to monitor.
[2021-09-28 23:21] VITALS: BP 156/94
[2021-09-29 03:37] VITALS: BP 148/96
[2021-09-29] MEDS: AMPICILLIN/SULBACTAM 3 GM in IV DEXTROSE 5% 100ML 100 ML IV SCH ×3 (06:00→17:56)
[2021-09-29 07:00] VITALS: BP 148/88
[2021-09-29] MEDS: FINASTERIDE 5 MG TABLET. PO SCH (08:30)
[2021-09-29] MEDS: LACTOBACILLUS RHAMNOSUS GG 1 CAPSULE. PO SCH ×2 (08:31→20:23)
[2021-09-29] MEDS: TAMSULOSIN 0.4 MG CAP.ER.24H. PO SCH ×2 (08:31→20:23)
[2021-09-29] MEDS: NICOTINE 14MG PATCH. TD SCH (08:47)
[2021-09-29] MEDS ORDERED: HALOPERIDOL LACTATE 5 MG/ML VIAL. IVP ONE (09:45)
[2021-09-29 11:00] VITALS: BP 146/88
[2021-09-29 15:00] VITALS: BP 159/87
[2021-09-29 19:00] VITALS: BP 139/80
[2021-09-29 23:00] VITALS: BP 150/96
[2021-09-30] MEDS: AMPICILLIN/SULBACTAM 3 GM in IV DEXTROSE 5% 100ML 100 ML IV SCH ×5 (00:18→23:41)
[2021-09-30 03:00] VITALS: BP 129/87
[2021-09-30 07:00] VITALS: BP 132/90
[2021-09-30] MEDS: TAMSULOSIN 0.4 MG CAP.ER.24H. PO SCH ×2 (08:10→21:13)
[2021-09-30] MEDS: FINASTERIDE 5 MG TABLET. PO SCH (08:10)
[2021-09-30] MEDS: LACTOBACILLUS RHAMNOSUS GG 1 CAPSULE. PO SCH ×2 (08:10→21:13)
[2021-09-30] MEDS: NICOTINE 14MG PATCH. TD SCH (08:14)
--- NOTE | 2021-09-30 09:49 | PDOC ---
[employer] PROGRESS NOTE Date of Service DOS: Late entry September 29 Chief Complaint Chief Complaint A/P: Intractable abdominal pain - likely due to urinary obstruction. Has improved Urinary retention - allen replaced on irrigation, starting to have flow after bedside manipulation. Urology consulted for further assessment BPH - cont flomax Chronic indwelling allen cather HTN - reconcile [facility] meds Thrombocytopenia - No clear etiology, monitor. Hold thromboprophylaxis Elevated Cr - unclear if ALFA, likely post-obstructive Will try voiding trial today. No gross hematuria in allen bag FEN - Regular diet PPX - SCDs FULL CODE Dispo - inpatient for above History of Present Illness History of Present Illness 09/29 Patient evaluated examined at bedside. Patient frequently asking throughout the day to go outside and smoke a cigarette or to go get a drink. Able to be redirected at times. We will try to contact family about this to see if they know of any previous episodes of this sort. Continue UTI treatment. 09/28 Patient evaluated examined at bedside. Resting in bed very pleasant said that he continues to feel better. Continuing antibiotics for UTI treatment. Mental status actually seems a little bit worse than yesterday. We will see if therapy can eval. Plan discussed with bedside RN. 09/27 Evaluate examined at bedside. Up in bed eating breakfast. Voiding trial did not go well yesterday and required Allen replacement. This morning no complaints. Mental status does seem a bit improved from events of yesterday. Continue IV antibiotics for UTI treatment. Suspect this is strongly contributing to his mental status. Plan discussed with bedside RN. 09/26 Patient evaluated examined at bedside. He was sitting at edge of bed eating his breakfast. He was doing well no complaints or pleasant. Allen bag is no evidence of further hematuria we will try a voiding trial per urology recommendations. Patient agreeable to having Allen replaced if voiding trial does not go well. Plan discussed with bedside RN. Vitals/I&O Vitals/I&O: Vital Signs Date Time Temp Pulse Resp B/P (MAP) Pulse Ox O2 Delivery O2 Flow Rate FiO2 09/30/21 07:00 97.8 67 20 132/90 (104) 91 Room Air 97.8 I & O 09/29/21 09/29/21 09/30/21 15:00 23:00 07:00 Intake Total 200 ml 0 ml Output Total 800 ml 700 ml Balance -600 ml -700 ml Physical Exam General: Alert, Oriented X3, Cooperative, mild distress Heart: Regular rate Lungs: Clear Abdomen: Normal bowel sounds, Soft, No tenderness, No hepatosplenomegaly, No masses Extremities: No clubbing, No cyanosis, No edema, Normal pulses, No tenderness/swelling Skin: No rashes, No breakdown, No significant lesion Assessment and Plan Assessmemt and Plan Problems Medical Problems: (1) Allen catheter problem Status: Acute Comment Review of Relevant I have reviewed the following items bonnie (where applicable) has been applied. Justifications for Admission Other Justification HUGO JOHNS MD Sep 30, 2021 09:49
--- NOTE | 2021-09-30 10:35 | PDOC ---
[facility] PROGRESS NOTE Date of Service DOS: DATE: 09/30/21 TIME: 10:34 Chief Complaint Chief Complaint A/P: Intractable abdominal pain - likely due to urinary obstruction. Has improved Urinary retention - allen replaced on irrigation, starting to have flow after bedside manipulation. Urology consulted for further assessment BPH - cont flomax Chronic indwelling allen cather HTN - reconcile [facility] med[facility] Thrombocytopenia - No clear etiology, monitor. Hold thromboprophylaxis Elevated Cr - unclear if ALFA, likely post-obstructive Will try voiding trial today. No gross hematuria in allen bag FEN - Regular diet PPX - SCDs FULL CODE Dispo - inpatient for above History of Present Illness History of Present Illness 09/30 Patient evaluated examined at bedside. Mental status may be a little improved this morning. Was working with therapy when seen. Continue UTI treatment. Avoid mind altering medications. Delirium precautions. 09/29 Patient evaluated examined at bedside. Patient frequently asking throughout the day to go outside and smoke a cigarette or to go get a drink. Able to be redirected at times. We will try to contact family about this to see if they know of any previous episodes of this sort. Continue UTI treatment. 09/28 Patient evaluated examined at bedside. Resting in bed very pleasant said that he continues to feel better. Continuing antibiotics for UTI treatment. Mental status actually seems a little bit worse than yesterday. We will see if therapy can eval. Plan discussed with bedside RN. 09/27 Evaluate examined at bedside. Up in bed eating breakfast. Voiding trial did not go well yesterday and required Allen replacement. This morning no complaints. Mental status does seem a bit improved from events of yesterday. Continue IV antibiotics for UTI treatment. Suspect this is strongly contributing to his mental status. Plan discussed with bedside RN. 09/26 Patient evaluated examined at bedside. He was sitting at edge of bed eating his breakfast. He was doing well no complaints or pleasant. Allen bag is no ev idence of further hematuria we will try a voiding trial per urology recommendations. Patient agreeable to having Allen replaced if voiding trial does not go well. Plan discussed with bedside RN. Vitals/I&O Vitals/I&O: Vital Signs Date Time Temp Pulse Resp B/P (MAP) Pulse Ox O2 Delivery O2 Flow Rate FiO2 09/30/21 08:00 Room Air 09/30/21 07:00 97.8 67 20 132/90 (104 91 97.8 I & O 09/29/21 09/29/21 09/30/21 15:00 23:00 07:00 Intake Total 200 ml 0 ml Output Total 800 ml 700 ml Balance -600 ml -700 ml Physical Exam General: Alert, Oriented X3, Cooperative, mild distress Heart: Regular rate Lungs: Clear Abdomen: Normal bowel sounds, Soft, No tenderness, No hepatosplenomegaly, No masses Extremities: No clubbing, No cyanosis, No edema, Normal pulses, No tenderness/swelling Skin: No rashes, No breakdown, No significant lesion Assessment and Plan Assessmemt and Plan Problems Medical Problems: (1) Allen catheter problem Status: Acute Comment Review of Relevant I have reviewed the following items bonnie (where applicable) has been applied. Justifications for Admission Other Justification HUGO JOHNS MD Sep 30, 2021 10:35
[2021-09-30 15:00] VITALS: BP 118/79
[2021-09-30 19:00] VITALS: BP 109/71
[2021-09-30] MEDS ORDERED: PANT20TA2 PO (19:10)
[2021-09-30] MEDS ORDERED: LEVO50TA5 PO (19:10)
[2021-09-30] MEDS ORDERED: SIMV40TA18 PO (19:10)
[2021-09-30] MEDS ORDERED: ALLO300T PO (19:10)
[2021-09-30] MEDS ORDERED: CHOL5000 PO (19:10)
[2021-09-30] MEDS ORDERED: ASPI-886 PO (19:10)
[2021-09-30] MEDS ORDERED: OXYB5TAB10 PO (19:10)
[2021-09-30] MEDS ORDERED: LISI-130 PO (19:10)
[2021-09-30] MEDS ORDERED: SIMVASTATIN 40 MG TABLET. PO SCH (21:00)
[2021-09-30] MEDS: OXYBUTYNIN CHLORIDE 5 MG TABLET PO SCH (21:13)
[2021-09-30 23:00] VITALS: BP 138/85
[2021-10-01 03:00] VITALS: BP 141/76
[2021-10-01] MEDS: AMPICILLIN/SULBACTAM 3 GM in IV DEXTROSE 5% 100ML 100 ML IV SCH (05:37)
[2021-10-01] MEDS ORDERED: LEVOTHYROXINE 50 MCG TABLET PO SCH (06:00)
[2021-10-01 07:00] VITALS: BP 150/96
[2021-10-01] MEDS ORDERED: PANTOPRAZOLE 40 MG TABLET.DR. PO SCH (07:30)
[2021-10-01] MEDS ORDERED: CHOLECALCIFEROL (VITAMIN D3) 1,000 UNIT TABLET PO SCH (09:00)
[2021-10-01] MEDS ORDERED: ASPIRIN ENTERIC COATED 81 MG TABLET.DR. PO SCH (09:00)
[2021-10-01] MEDS ORDERED: LISINOPRIL 20 MG TABLET PO SCH (09:00)
[2021-10-01] MEDS ORDERED: ALLOPURINOL 300 MG TABLET. PO SCH (09:00)
--- NOTE | 2021-10-01 09:00 | NUR ---
Pt confused and forgetful but pleasant and easy to redirect. Cont. monitor.
[2021-10-01] MEDS: TAMSULOSIN 0.4 MG CAP.ER.24H. PO SCH (09:40)
[2021-10-01] MEDS: LACTOBACILLUS RHAMNOSUS GG 1 CAPSULE. PO SCH (09:40)
[2021-10-01] MEDS: OXYBUTYNIN CHLORIDE 5 MG TABLET PO SCH (09:41)
[2021-10-01] MEDS: NICOTINE 14MG PATCH. TD SCH (09:42)
[2021-10-01] MEDS: FINASTERIDE 5 MG TABLET. PO SCH (09:42)
--- NOTE | 2021-10-01 09:55 | PDOC ---
[facility] PROGRESS NOTE Date of Service DOS: DATE: 10/01/21 TIME: 09:52 Chief Complaint Chief Complaint A/P: Intractable abdominal pain - likely due to urinary obstruction. Has improved Urinary retention - allen replaced on irrigation, starting to have flow after bedside manipulation. Urology consulted for further assessment BPH - cont flomax Chronic indwelling allen cather HTN - reconcile [facility] meds Thrombocytopenia - No clear etiology, monitor. Hold thromboprophylaxis Elevated Cr - unclear if ALFA, likely post-obstructive Will try voiding trial today. No gross hematuria in allen bag FEN - Regular diet PPX - SCDs FULL CODE Dispo - inpatient for above History of Present Illness History of Present Illness 10/01 Patient seen and examined sitting at bedside Patient is pleasant and cooperative Discussed case with RN Chart reviewed Continue UTI treatment. Avoid mind altering medications. Delirium precautions. 09/30 Patient evaluated examined at bedside. Mental status may be a little improved this morning. Was working with therapy when seen. Continue UTI treatment. Avoid mind altering medications. Delirium precautions. 09/29 Patient evaluated examined at bedside. Patient frequently asking throughout the day to go outside and smoke a cigarette or to go get a drink. Able to be redirected at times. We will try to contact family about this to see if they know of any previous episodes of this sort. Continue UTI treatment. 09/28 Patient evaluated examined at bedside. Resting in bed very pleasant said that he continues to feel better. Continuing antibiotics for UTI treatment. Mental status actually seems a little bit worse than yesterday. We will see if therapy can eval. Plan discussed with bedside RN. 09/27 Evaluate examined at bedside. Up in bed eating breakfast. Voiding trial did not go well yesterday and required Allen replacement. This morning no complaints. Mental status does seem a bit improved from events of yesterday. Continue IV antibiotics for UTI treatment. Suspect this is strongly contributing to his mental status. Plan discussed with bedside RN. 09/26 Patient evaluated examined at bedside. He was sitting at edge of bed eating his breakfast. He was doing well no complaints or pleasant. Allen bag is no evidence of further hematuria we will try a voiding trial per urology recommendations. Patient agreeable to having Allen replaced if voiding trial does not go well. Plan discussed with bedside RN. Vitals/I&O Vitals/I&O: Vital Signs Date Time Temp Pulse Resp B/P (MAP) Pulse Ox O2 Delivery O2 Flow Rate FiO2 10/01/21 09:41 76 135/89 10/01/21 07:00 97.9 18 94 Room Air 97.9 I & O 09/30/21 09/30/21 10/01/21 15:00 23:00 07:00 Intake Total 0 ml Output Total 400 ml 350 ml Balance -400 ml -350 ml Physical Exam General: Alert, Oriented X3, Cooperative, mild distress Heart: Regular rate Lungs: Clear Abdomen: Normal bowel sounds, Soft, No tenderness, No hepatosplenomegaly, No masses Extremities: No clubbing, No cyanosis, No edema, Normal pulses, No tenderness/swelling Skin: No rashes, No breakdown, No significant lesion Assessment and Plan Assessmemt and Plan Problems Medical Problems: (1) Allen catheter problem Status: Acute Appreciate Urology input --Gross hematuria Seems to have resolved after several hours of CBI. CBI was turned off. Restart if becoming bloody. We will get CT urogram to visualize any upper tract abnormalities causing his gross hematuria. Patient will need to follow-up in the clinic for a nonemergent cystoscopy. --Acute urinary retention Allen catheter had been clogged. Nursing has exchanged this and having good urine output. Patient does have chronic indwelling Allen catheter since summer 2020, managed by urology. Circumstances for placement are unclear. We will start patient on Flomax 0.4 mg twice daily. If urine output continues to be clear, can trial a voiding trial in the morning at 6 AM. If unsuccessful, replace Allen catheter. He can maintain this for the next 2 weeks and follow-up with [facility] for voiding trial and cystoscopy as patient seems to be very dissatisfied with urology and looking for a new urologist. --UTI Urine culture showing Enterococcus faecalis. Would treat with 14 days of culture specific antibiotics. This could be contributing to his gross hematuria. Probable discharge this afternoon Comment Review of Relevant I have reviewed the following items bonnie (where applicable) has been applied. Medications: Current Medications Medications (Trade) Dose Ordered Sig/Izabella Route PRN Reason Start Time Stop Time Status Last Admin Dose Admin Allopurinol (Zyloprim) 300 mg DAILY PO 10/01/21 09:00 10/01/21 09:41 Aspirin (Ecotrin) 81 mg DAILY PO 10/01/21 09:00 10/01/21 09:40 Vitamin D (Vitamin D3) 2,000 unit DAILY PO 10/01/21 09:00 10/01/21 09:40 Levothyroxine Sodium (Synthroid) 50 mcg DAILY06 PO 10/01/21 06:00 10/01/21 05:37 Lisinopril (Prinivil) 40 mg DAILY PO 10/01/21 09:00 10/01/21 09:41 Oxybutynin Chloride (Ditropan) 5 mg BID PO 09/30/21 21:00 10/01/21 09:41 Simvastatin (Zocor) 40 mg QHS PO 09/30/21 21:00 09/30/21 21:13 Pantoprazole Sodium (Protonix) 40 mg DAILYAC PO 10/01/21 07:30 10/01/21 09:40 Justifications for Admission Other Justification ADDIE LAWSON III DO Oct 01, 2021 09:55
[2021-10-01 11:00] VITALS: BP 151/98
[2021-10-01] MEDS ORDERED: TAMS0.4C97 PO (11:11)
[2021-10-01] MEDS ORDERED: FINA5TAB4 PO (11:11)
[2021-10-01] MEDS ORDERED: AMOX1TAB11 PO (11:11)
--- NOTE | 2021-10-01 11:12 | SNU/HH DC ---
DISCHARGE WITH HOME HEALTH DISCHARGE INFORMATION: Final Diagnosis: Problems Medical Problems: (1) Combs catheter problem Status: Acute Condition on Discharge: Stable CODE STATUS: Code Status: Full HOME HEALTH: Face to Face: I certify this patient is under my care and that I, or a nurse practitioner or physician's commercial lines account assistant working with me, had a face to face encounter that meets the physician face to face encounter requirements with this patient on []. Medical Complications: Other (BPH/UTI) Senior Care For: Assess & Educate Safety RN For Eval/Treatment: Yes Physical Therapy For: Evalulation/Treatment Occupational Therapy For: Evaluation/Treatment Home Health Aide For: Self-care PLASTERER MAINTENANCE For: Community Resources Pt Meets Homebound Status: Poor coordination w/ amb. POST DISCHARGE ORDERS: DIET AFTER DISCHARGE: Cardiac CERTIFICATION STATEMENT: Certification Statement: Certification Statement: Based on the above finding, I certify that this patient is confined to the home and needs intermittent chcf care, physical therapy and/or speech therapy, or continues to need occupational therapy.~ This patient is under my care, and I have initiated the establishment of the plan of care.~ This patient will be followed by myself or a community physician who will periodically review the plan of care. Home Meds Active Scripts Finasteride (FINASTERIDE) 5 Mg Tablet, 5 MG PO DAILY for . for 30 Days, #30 TAB Prov:SOHAIL LAWSONL K III DO 10/01/21 Tamsulosin Hcl (FLOMAX) 0.4 Mg Cap.er.24h, 0.4 MG PO BID for . for 30 Days, #60 CAP.SR Prov:CASTSOHAIL LUISL K III DO 10/01/21 Amoxicillin/Potassium Clav (AMOX TR-K CLV 875-125 MG TAB) 1 Each Tablet, 1 TAB PO BID for . for 7 Days, #14 TAB Prov:CASTSOHAIL LUISL K III DO 10/01/21 Ciprofloxacin Hcl (CIPRO) 500 Mg Tablet, 1 TAB PO BID for 7 Days, #14 TAB 0 Refills Prov:MACHO SANDERS APRN 08/20/21 Cephalexin (CEPHALEXIN) 500 Mg Tablet, 1 TAB PO TID for UTI for 10 Days, #30 TAB Prov:ISAK DANIEL DO 07/28/21 Reported Medications Lisinopril (LISINOPRIL) 40 Mg Tablet, 1 TAB PO DAILY for htn, #30 TAB 5 Refills 09/30/21 Simvastatin (SIMVASTATIN) 40 Mg Tablet, 1 TAB PO QHS for high cholesterol, #30 TAB 5 Refills 09/30/21 Levothyroxine Sodium (LEVOTHYROXINE SODIUM) 50 Mcg Tablet, 1 TAB PO DAILY06 for hypothyroid, #30 TAB 5 Refills 09/30/21 Pantoprazole Sodium (PROTONIX) 20 Mg Tablet.dr, 40 MG PO DAILY for GERD, TAB 09/30/21 Oxybutynin Chloride (OXYBUTYNIN CHLORIDE) 5 Mg Tablet, 1 TAB PO BID for bladder spasms, #60 TAB 11 Refills 09/30/21 Cholecalciferol (Vitamin D3) (Vitamin D3 ) 125 Mcg Capsule, 125 MCG PO DAILY for SUPPLEMENT, CAP 5,000 UNITS = 125 MCG 09/30/21 Aspirin (ASPIRIN EC) 81 Mg Tablet.dr, 1 TAB PO DAILY for prophalaxis, #30 TAB 3 Refills 09/30/21 Allopurinol (ALLOPURINOL) 300 Mg Tablet, 1 TAB PO DAILY for gout, #30 TAB 5 Refills 09/30/21 ADDIE LAWSON III DO Oct 01, 2021 11:12
[2021-10-01] MEDS ORDERED: AMOXICILLIN/K CLAV 875/125MG TABLET. PO SCH (12:00)
--- NOTE | 2021-10-01 14:08 | DS ---
DATE OF DISCHARGE: 10/01/2021 ADMISSION DIAGNOSES: Hematuria (he actually pulled his Combs out), history of chronic Combs, hypertension, history of hepatitis A, B and C and BPH. CONSULTS: Urology. PROCEDURES: None. HOSPITAL COURSE: The patient is a pleasant middle-aged male, who apparently has a chronic indwelling Combs and pulled it out accidentally. He presented with hematuria. We replaced the Combs and consulted Urology. Over the past couple of days, he has done better. Today, I saw and examined him. He is doing well. He still has his Combs in. Urology would like to try continuing the finasteride and Flomax and actually we are going to try to do a voiding trial without the Combs. If he does not pass then we will put the Combs back in and let him go this afternoon. DISPOSITION: Home. ACTIVITY: As tolerated. DIET: Low sodium. DISCHARGE MEDICATIONS: Please see the MRAD. Other medications: Flomax 0.4 b.i.d., finasteride 5 daily, Augmentin 875 p.o. b.i.d., allopurinol 300 a day, aspirin 81 a day, vitamin D, Synthroid 50 a day, lisinopril 40 a day, oxybutynin 5 b.i.d., Protonix 40 a day, simvastatin 40 a day. TOTAL TIME: Thirty-two minutes. KATH/OFE DR: ANDREA/jeramie TID: [id number]
[2021-10-01 15:00] VITALS: BP 149/92
--- NOTE | 2021-10-01 15:00 | NUR ---
SW following. Discussed with RN, pt from home alone - family checks on him. Pt getting up ad briana however therapy recommended SNF even though pt walked 125 feet. Discharge order for home with self care. ASHUTOSH discussed with Kit Singh RN who has had a referral before they can accept pt again. ASHUTOSH discussed with RN. ASHUTOSH spoke with pt's nephew Gagan PierreJimmy) ph: [phone], he is agreeable to home health and will be collecting patient this afternoon. RN notified. Pt is a high risk readmission.
--- NOTE | 2021-10-01 16:50 | NUR ---
Gagan ARMENTA came to pick patient up. Discharge instructions given. Answered questions and concerns. Pt discharged home with home health. Escorted out by w/c.
== END 2021-10-01 16:50 | disposition home or self-care (01) | DRG 699 ==
LOC: ER 23:06 → ED HOLD 09-25 00:10 → INTOOBSV 09-25 00:10 → 4 NORTH 09-25 13:03 → OBSVTOIN 09-27 09:43
PROVIDERS: ADMIT Student in an Organized Health Care Education/Training Program; ATTEND Student in an Organized Health Care Education/Training Program
DX: T83.9XXA Unspecified complication of genitourinary prosthetic device, implant and graft, initial encounter (principal); N13.8 Other obstructive and reflux uropathy; R31.0 Gross hematuria; D69.6 Thrombocytopenia, unspecified; E03.9 Hypothyroidism, unspecified; F17.210 Nicotine dependence, cigarettes, uncomplicated; I10 Essential (primary) hypertension; K82.8 Other specified diseases of gallbladder; N40.1 Benign prostatic hyperplasia with lower urinary tract symptoms; Z82.49 Family history of ischemic heart disease and other diseases of the circulatory system; Z96.652 Presence of left artificial knee joint; R33.8 Other retention of urine
CPT/HCPCS: 36415; 70450; 74178; 80048; 80053; 81001; 85025; 87086; G0378; G0379; J0290; J0295; J0360; J1630; J2060; J3010; J7060; Q9967; 97110-GP; 97116-GP; 97530-GO; 97530-GP

== ENCOUNTER 2021-11-11 10:03 | Emergency (ER) | payer MEDICARE ==
[~2021-11-11] VITALS: Ht 180.3 cm; Wt 80.9 kg
[~2021-11-11 10:03] MED LIST changes: +ALLO300T PO; +AMOX1TAB11 PO; +ASPI-886 PO; +CHOL5000 PO; +FINA5TAB4 PO; +LEVO50TA5 PO; +LISI-130 PO; +OXYB5TAB10 PO; +PANT20TA2 PO; +SIMV40TA18 PO; +TAMS0.4C97 PO
[2021-11-11 12:03] LABS: BACTERIA,URINE 0 /HPF (0-FEW); RBC,URINE 0 /HPF (0-2); WBC,URINE OCC /HPF (0-4)
--- NOTE | 2021-11-11 12:34 | PHYS DOC ---
Past Medical History Past Medical History: Hypertension, Hypothyroid, UTI Additional Past Medical Histor: PROSTATE ENLARGEMENT, HEPATITIS Past Surgical History: Other Additional Past Surgical Histo: LEFT KNEE Smoking Status: Current Every Day Smoker Additional Information: 1 PPD Alcohol Use: None General Adult EDM: Chief Complaint: URINE CATHETER PROBLEM HPI: HPI: Patient is a 76 year old male presents to the emergency department requesting to have his indwelling Combs catheter changed. Patient denies any problems with this Combs catheter, denies urinary pressure, urinary pain, abdominal pain, recent fever chills, nausea, vomiting, diarrhea. Patient states he was admitted to the hospital on September 25, 2021 for urinary retention, had a indwelling Combs placed, has been discharged home, has not followed up with a urologist since. Patient denies other physical complaints or physical concerns. Review of Systems: Review of Systems: 14 body systems of review of systems have been reviewed. See HPI for pertinent positives and negative responses, otherwise all other systems are negative, nonpertinent or noncontributory. Constitutional: Negative except as outlined in HPI above. Skin: Negative except as outlined in HPI above. Eyes: Negative except as outlined in HPI above. HENT: Negative except as outlined in HPI above. Respiratory: Negative except as outlined in HPI above. Cardiovascular: Negative except as outlined in HPI above. GI: Negative except as outlined in HPI above. : Negative except as outlined in HPI above. Musculoskeletal: Negative except as outlined in HPI above. Integument: Negative except as outlined in HPI above. Neurologic: Negative except as outlined in HPI above. Endocrine: Negative except as outlined in HPI above. Lymphatic: Negative except as outlined in HPI above. Psychiatric: Negative except as outlined in HPI above. Heart Score: C/O Chest Pain: No Risk Factors: Risk Factors: DM, Current or recent (<one month) smoker, HTN, HLP, family history of CAD, obesity. Risk Scores: Score 0 - 3: 2.5% MACE over next 6 weeks - Discharge Home Score 4 - 6: 20.3% MACE over next 6 weeks - Admit for Clinical Observation Score 7 - 10: 72.7% MACE over next 6 weeks - Early Invasive Strategies Allergies: Allergies: Allergies Coded Allergies Type Severity Reaction Last Updated Verified No Known Drug Allergies 08/20/21 No Physical Exam: PE: Constitutional: Well developed, well nourished, no acute distress, non-toxic appearance. 76-year-old male in no apparent distress. HENT: Normocephalic, atraumatic. Eyes: Conjunctiva normal, no discharge. Neck: Normal range of motion, no stridor. Cardiovascular: No cyanosis appreciated, distal cap refill less than 2 seconds. Lungs & Thorax: Patient is in no respiratory distress, no audible adventitious lung sounds appreciated. Abdomen: Nontender, no abnormalities noted. Skin: Warm, dry, no erythema, no rash. Back: No tenderness, no deformities. Extremities: No tenderness, no cyanosis, no clubbing, ROM intact, no edema. Neurologic: Alert and oriented X 3, normal motor function, normal sensory functi on, no focal deficits noted. Psychologic: Affect normal, judgement normal, mood normal. : Patient has 16 Frisian and dwelling catheter, no purulence or erythema from external meatus, Combs catheter is very clean, there is clear yellow urine draining into collection bag. Current Patient Data: Labs: Laboratory Tests Test 11/11/21 10:55 Urine Collection Type Unknown Urine Color (Auto) Yellow Urine Turbidity Clear Urine pH (Auto) 7.0 (<5.0-8.0) Urine Specific [place] 1.010 (1.000-1.030) Urine Protein (Auto) Negative mg/dL (Negative) Urine Glucose (Auto)(UA) Negative mg/dL (Negative) Urine Ketones (Auto) Negative mg/dL (Negative) Urine Blood (Auto) Negative (Negative) Urine Nitrite Negative (Negative) Urine Bilirubin (Auto) Negative (Negative) Urine Urobilinogen (Auto) Normal mg/dL (Normal) Urine Leukocyte Esterase (Auto) Negative (Negative) Urine RBC 0 /HPF (0-2) Urine WBC Occ /HPF (0-4) Urine Squamous Epithelial Cells Occ /LPF Urine Bacteria 0 /HPF (0-FEW) Urine Mucus Slight /LPF Vital Signs: Vital Signs Date Time Temp Pulse Resp B/P (MAP) Pulse Ox O2 Delivery O2 Flow Rate FiO2 11/11/21 10:21 97.9 75 16 168/102 (124) 100 Room Air 97.9 EKG: EKG: [] Radiology/Procedures: Radiology/Procedures: [] Course & Med Decision Making: Course & Med Decision Making Pertinent Labs and Imaging studies reviewed. (See chart for details) 76-year-old male, vital signs reviewed, presents emergency department requesting Combs catheter change. Patient had Combs placed on September 252021, physical examination reveals very clean Combs catheter, evidence of good catheter care at home, the urine is clear, will change Combs catheter, send urine for urinalysis assay. The patient's urine is not infected, discussed with patient strict follow-up with urology for ongoing management of urinary retention problems. Patient states he does not have a appointment coming up soon. Discussed with patient to continue good Combs care at home. Discussed return to ER precautions and concerns. Patient gave verbal understanding of and is amenable to ED discharge planning. Dragon Disclaimer: [employer] Disclaimer: This electronic medical record was generated, in whole or in part, using a voice recognition dictation system. Departure Departure Impression: Primary Impression: Combs catheter problem Qualified Codes: T83.9XXA - Unspecified complication of genitourinary prosthetic device, implant and graft, initial encounter Disposition: HOME / SELF CARE / HOMELESS Condition: GOOD Referrals: SILVIANO STEVEN MD (PCP) FORTINO SPENCER MD Additional Instructions: You were seen today in the emergency department and had your Combs catheter changed. A urine sample was sent to the lab and did not show any concerning signs of infection. Please continue to perform good Combs catheter care at home to help prevent urinary tract infections. I have given the information for urology specialist Dr. Valderrama, please make an appointment for ongoing management of your urinary retention and evaluation of need for continual Combs catheter. Thank you for visiting our Emergency Department. It was a pleasure taking care of you today in the emergency department and we appreciate you trusting us with your care. If any additional problems come up don't hesitate to return to visit us. Please follow up with your primary care provider so they can plan additional care if needed and know about the problem that you had. If symptoms worsen come back to the Emergency Department. Any concerning symptoms that start such as chest pain, shortness of air, weakness or numbness on one side of the body, running high fevers or any other concerning symptoms return to the ER. ISAK DOSHI APRN Nov 11, 2021 12:33
[2021-11-11 13:00] VITALS: BP 152/88
== END 2021-11-11 13:02 | disposition home or self-care (01) ==
LOC: ER 10:03
DX: T83.9XXA Unspecified complication of genitourinary prosthetic device, implant and graft, initial encounter (principal); I10 Essential (primary) hypertension; E03.9 Hypothyroidism, unspecified; F17.200 Nicotine dependence, unspecified, uncomplicated; Y84.6 Urinary catheterization as the cause of abnormal reaction of the patient, or of later complication, without mention of misadventure at the time of the procedure; Y92.89 Other specified places as the place of occurrence of the external cause
CPT/HCPCS: 51702; 81001; 99284; A4314

== ENCOUNTER 2021-11-12 02:32 | Emergency (ER) | payer MEDICARE ==
[~2021-11-12] VITALS: Ht 180.3 cm; Wt 80.9 kg
--- NOTE | 2021-11-12 03:00 | PHYS DOC ---
Past Medical History Past Medical History: Hypertension, Hypothyroid, UTI Additional Past Medical Histor: PROSTATE ENLARGEMENT, HEPATITIS Past Surgical History: Other Additional Past Surgical Histo: LEFT KNEE Smoking Status: Current Every Day Smoker Alcohol Use: None General Adult EDM: Chief Complaint: MALE UROGENITAL PROBLEMS HPI: HPI: P history obtained from patient and chart review. Patient is a 76-year-old male with past medical history significant for urinary retention who presents with a chief complaint of Combs catheter malfunction. Patient states he was seen here yesterday for Combs catheter exchange. He states at that time Combs catheter was functioning well. He states throughout the night he has had increasing suprapubic discomfort. Notes decreased output in his Combs catheter bag. Does note some bloody drainage in his Combs catheter bag. States the pain is greatest in the suprapubic region. Does not take blood thinners. States he originally had Combs catheter placed on September 25 for urinary retention. States he has not seen a urologist yet. Has no other complaints. Per chart review patient did have Combs catheter exchanged approximately 14 ho urs ago. Urinalysis at that time showed no evidence of infection. Review of Systems: Review of Systems: Constitutional: Denies fever or chills. [] Eyes: Denies change in visual acuity. [] HENT: Denies nasal congestion or sore throat. [] Respiratory: Denies cough or shortness of breath. [] Cardiovascular: Denies chest pain or edema. [] GI: Denies abdominal pain, nausea, vomiting, bloody stools or diarrhea. [] : Positive for hematuria Musculoskeletal: Denies back pain or joint pain. [] Integument: Denies rash. [] Neurologic: Denies headache, focal weakness or sensory changes. [] Endocrine: Denies polyuria or polydipsia. [] Lymphatic: Denies swollen glands. [] Psychiatric: Denies depression or anxiety. [] Heart Score: C/O Chest Pain: No Risk Factors: Risk Factors: DM, Current or recent (<one month) smoker, HTN, HLP, family history of CAD, obesity. Risk Scores: Score 0 - 3: 2.5% MACE over next 6 weeks - Discharge Home Score 4 - 6: 20.3% MACE over next 6 weeks - Admit for Clinical Observation Score 7 - 10: 72.7% MACE over next 6 weeks - Early Invasive Strategies Allergies: Allergies: Allergies Coded Allergies Type Severity Reaction Last Updated Verified No Known Drug Allergies 08/20/21 No Physical Exam: PE: Constitutional: Well developed, well nourished, no acute distress, non-toxic appearance. [] HENT: Normocephalic, atraumatic, bilateral external ears normal, oropharynx moist, no oral exudates, nose normal. [] Eyes: PERRLA, EOMI, conjunctiva normal, no discharge. [] Neck: Normal range of motion, no tenderness, supple, no stridor. [] Cardiovascular:Heart rate regular rhythm, no murmur [] Lungs & Thorax: Bilateral breath sounds clear to auscultation [] Abdomen: Fullness palpated in the suprapubic region. Reproducible tenderness palpation. No involuntary guarding or rigidity noted. : Combs catheter appears in place. No blood at the external urethral meatus. Hematuria appreciated in the Combs catheter bag Skin: Warm, dry, no erythema, no rash. [] Back: No tenderness, no CVA tenderness. [] Extremities: No tenderness, no cyanosis, no clubbing, ROM intact, no edema. [] Neurologic: Alert and oriented X 3, normal motor function, normal sensory function, no focal deficits noted. [] Psychologic: Affect normal, judgement normal, mood normal. [] Current Patient Data: Vital Signs: Vital Signs Date Time Temp Pulse Resp B/P (MAP) Pulse Ox O2 Delivery O2 Flow Rate FiO2 11/12/21 02:51 98.2 115 20 187/118 (141) 99 Room Air 98.2 Vital Signs Date Time Temp Pulse Resp B/P (MAP) Pulse Ox O2 Delivery O2 Flow Rate FiO2 11/12/21 03:21 76 18 140/98 (112) 97 Room Air 11/12/21 02:51 98.2 98.2 EKG: EKG: [] Radiology/Procedures: Radiology/Procedures: [] Course & Med Decision Making: Course & Med Decision Making Pertinent Labs and Imaging studies reviewed. (See chart for details) [][] Patient is a pleasant 56-year-old male who presents with concern for Combs catheter malfunction. Initial vital signs largely unremarkable. Per chart review he had his catheter exchanged yesterday. Notes upon discharge it was functioning appropriately. Returns tonight for suprapubic pain and lack of Combs catheter drainage. Upon my assessment he does have small amount of hematuria in the Combs catheter tubing. Bladder scan was performed and shows approximate 600 mils of retained fluid. Bedside ultrasound performed by myself does show Combs catheter bulb within the urinary bladder. My suspicion is a blood clot from possible traumatic Combs catheter insertion is blocking drainage. Initial irrigation was performed without relief. Combs catheter was removed and subsequently exchange again. He did have clear urinary output approximately 600 mL. His pain did resolve. I do not feel a repeat urinalysis is indicated this evening. Discussed appropriate Combs care measures at home. Encouraged to follow-up with his urologist. Return precautions discussed and understood. Stable and agreeable for discharge home. Dragon Disclaimer: Right Relevance Disclaimer: This electronic medical record was generated, in whole or in part, using a voice recognition dictation system. Departure Departure Impression: Primary Impression: Malfunction of Combs catheter Qualified Codes: T83.011A - Breakdown (mechanical) of indwelling urethral catheter, initial encounter Disposition: HOME / SELF CARE / HOMELESS Condition: GOOD Referrals: SILVIANO STEVEN MD (PCP) FORTINO SPENCER MD Patient Instructions: Combs Catheter Care, Adult Additional Instructions: Please contact urology in the next 2 to 3 days for close Combs care follow-up MYKE BERNARD DO Nov 12, 2021 03:00
[2021-11-12 03:21] VITALS: BP 140/98
== END 2021-11-12 03:32 | disposition home or self-care (01) ==
LOC: ER 02:32
DX: T83.011A Breakdown (mechanical) of indwelling urethral catheter, initial encounter (principal); E03.9 Hypothyroidism, unspecified; F17.200 Nicotine dependence, unspecified, uncomplicated; I10 Essential (primary) hypertension; Y84.6 Urinary catheterization as the cause of abnormal reaction of the patient, or of later complication, without mention of misadventure at the time of the procedure; Y92.89 Other specified places as the place of occurrence of the external cause
CPT/HCPCS: 51702; 99284-25